=== PATIENT | male | born 1945 | race Caucasian/White ===

== ENCOUNTER 2017-02-14 14:40 | Emergency (ER) | payer MEDICARE, OTHER ==
[2017-02-14] MEDS ORDERED: NS 0.9% 1000 ML* 1,000 ML IV ONE (16:53)
[2017-02-14 17:54] LABS: Hematocrit 39 % (42-52); Hemoglobin 12.4 g/dl (14.0-18.0); Mean Corpuscular HGB Conc 32 g/dl (31-36); Mean Corpuscular Hemoglobin 30 pg (27-31); Mean Corpuscular Volume 95 fL (80-94); Mean Platelet Volume 8 um3 (7.4-10.4); Red Blood Count 4.09 10^6/ul (4.0-5.4); Red Cell Distribution Width 16 % (10.5-15)
[2017-02-14 18:09] LABS: ALT 9 U/L (7-52); AST 17 U/L (13-39); Albumin 3.1 g/dL (3.2-5.2); Alkaline Phosphatase 101 U/L (34-104); Amylase < 10 U/L (29-103); Anion Gap 4 mmol/L (2-11); BUN/Creatinine Ratio 7.6 (8-20); Blood Urea Nitrogen 10 mg/dL (6-24); C Reactive Protein 88.75 mg/L (< 5.00); CO2 Carbon Dioxide 32 mmol/L (22-32); Calcium 9.1 mg/dL (8.6-10.3); Chloride 97 mmol/L (101-111); Creatine Kinase 26 U/L (10-223); EGFR African American 69.8 (>60); EGFR Non-African American 54.3 (>60); Globulin 3.5 g/dL (2-4); Glucose 110 mg/dL (70-100); Lipase < 10 U/L (11.0-82.0); Potassium 4.7 mmol/L (3.5-5.0); Sodium 133 mmol/L (133-145); Total Protein 6.6 g/dL (6.4-8.9)
[2017-02-14] MEDS ORDERED: Iodixanol* (CONTRAST) 320 MG/ML 100 ML SDV IV ONE ×2 (18:45→19:04)
--- NOTE | 2017-02-14 18:55 | ED ---
Kelli Trammell Edward, scribed for Jacques Olivo MD on 02/14/17 at 1616 . Skin Complaint - HPI Summary HPI Summary: 71 y/o male presents to ED c/o rectal abscess. Patient has an abscess near his rectum on the L buttock that appeared 10 days ago. The pain due to the abscess is rated at an 8/10. The abscess popped yesterday; patient states it was 2-3 times the size it is now before then. Discharge from the abscess is almost all blood and no pus, per patient. Associated sx: decreased bowel movements (none in 5 days); hard painful stool; vomiting; back pain; stomach felt "light"; trouble urinating. Denies fever, chills. Patient had 2 abscesses, 1 on either side of the rectum around 2 months ago but resolved spontaneously following prescription drugs. PMHx abscess, enlarged prostate, HLD, heart problems, stomach ulcer 2 months ago. FHx DM (father), heart problems (father). - History of Current Complaint Chief Complaint: EDRectalPain Time Seen by Provider: 02/14/17 16:12 Stated Complaint: ABSCESS Hx Obtained From: Patient Onset/Duration: Started Days Ago - Around 10 days ago, Started Weeks Ago - Had 2 abscesses around 2 months ago Timing: Constant Onset Severity: Severe Current Severity: Moderate Pain Intensity: 8 Pain Scale Used: 0-10 Numeric Skin Location: Other: - Rectum Associated Signs & Symptoms: Vomiting, Tenderness - Rectum, due to absces - Additional Pertinent History Primary Care Physician: [id number] - Allergy/Home Medications Allergies/Adverse Reactions: Allergies Allergy/AdvReac Type Severity Reaction Status Date / Time Cortisone Allergy Intermediate SEVERE Verified 02/14/17 18:37 SWELLING OF BILATERAL FEET Propoxyphene [From Darvon] Allergy Intermediate Rash And Verified 02/14/17 18:37 Itching Adhesive Tape Allergy Unknown Unknown Verified 02/14/17 18:37 [Tegaderm Dressing] Reaction Details Latex Allergy Unknown Unknown Verified 02/14/17 18:37 Reaction Details Moxifloxacin [From Avelox] Allergy Unknown Unknown Verified 02/14/17 18:37 Reaction Details PMH/Surg Hx/FS Hx/Imm Hx Previously Healthy: No Endocrine/Hematology History: Denies: Hx Diabetes Cardiovascular History: Reports: Hx Angina, Hx Coronary Artery Disease, Hx Hypercholesterolemia, Hx Hypertension, Hx Myocardial Infarction, Hx Peripheral Vascular Disease, Other Cardiovascular Problems/Disorders Denies: Hx Pacemaker/ICD Respiratory History: Reports: Hx Chronic Obstructive Pulmonary Disease (COPD), Hx Sleep Apnea - borderline, Other Respiratory Problems/Disorders - Pt states chronic SOB to ED RN Denies: Hx Asthma GI History: Reports: Hx Gastroesophageal Reflux Disease, Hx Gastrointestinal Bleed, Hx Ulcer - 2013 BLEEDING STOMACH ULCER, Other GI Disorders - CONSTIPATION AND DIARRHEA HX OF PANCREATITIS History: Reports: Hx Renal Disease, Other Problems/Disorders - Kidney CA, partial right nephrectomy 2002 Musculoskeletal History: Reports: Hx Arthritis - BILATERAL FEET, SHOULDER, BACK , TOP 6 CERVICAL VERTEBRAE, Hx Back Problems - Chronic Back Pain Sensory History: Reports: Hx Contacts or Glasses - GLASSES Denies: Hx Hearing Aid Opthamlomology History: Reports: Hx Contacts or Glasses - GLASSES Neurological History: Reports: Hx Headaches - HX OF EXTREME H/A NONE PRESENTLY, Other Neuro Impairments/Disorders - Hx bilateral peripheral neuropathy CONCUSSION 2014 Psychiatric History: Reports: Hx Anxiety, Hx Depression - DOESN'T TAKE MEDS R/T SIDE EFFECTS Denies: Hx Panic Disorder - Cancer History Cancer Type, Location and Year: KIDNEY CA -Rt PARTIAL NEPHRECTOMY Hx Chemotherapy: No Hx Radiation Therapy: No - Surgical History Surgery Procedure, Year, and Place: 2001 RIGHT partial nephrectomy,2001 adhesions removed,2010 hernia repair,[id number] operation LEFT 1981 - BILATERTAL BREAST LUMPECTOMY 1996. LEFT BREAST LUMPECTOMY 2004-1 PRIMO STENT- 1 PROMUS STENT-4 MONORAIL STENTS-1 VORTX ABDOMINAL COIL-PER [employer] SCAN IN NORMAL MODE CONDITIONAL - 1.5t only 3T-ALL INFO REGUARDING STENT IS PT EMR. 2010 INCARCERATED VENTRAL HERNIA REPAIR Hx Anesthesia Reactions: No - Immunization History Date of Tetanus Vaccine: up to date per pt Date of Influenza Vaccine: NONE Infectious Disease History: No Infectious Disease History: Denies: Traveled Outside the [place] in Last 30 Days - Family History Known Family History: Positive: Cardiac Disease - Father - CAD, Other - Mom - cancer. Father - pancreatic cancer, CVA - Social History Alcohol Use: Daily Alcohol Amount: 2+ DRINKS DAILY Substance Use Type: Reports: None, Prescribed Hx Tobacco Use: Yes Smoking Status (MU): Light Every Day Tobacco Smoker Type: Cigarettes Amount Used/How Often: 1/2 PPD Length of Time of Smoking/Using Tobacco: MANY YEARS Have You Smoked in the Last Year: Yes Review of Systems Constitutional: Negative Negative: Fever, Chills Eyes: Negative ENT: Negative Cardiovascular: Negative Respiratory: Negative Positive: Vomiting, Other - Hard, painful stool. Decreased bowel movements Genitourinary: Other - Trouble urinating Musculoskeletal: Negative Skin: Other - Abscess on L buttcheek Neurological: Negative Psychological: Normal All Other Systems Reviewed And Are Negative: Yes Physical Exam - Summary Physical Exam Summary: The patient is well-nourished in mild distress and in no acute pain. The skin is warm and dry and skin color reflects adequate perfusion. HEENT: The head is normocephalic and atraumatic. The pupils are equal and reactive. The conjunctivae are clear and without drainage. Nares are patent and without drainage. Mouth reveals dry mucous membranes and the throat is without erythema and exudate. The external ears are intact. The ear canals are patent and without drainage. The tympanic membranes are intact. Neck is supple with full range of motion and non-tender. There are no carotid bruits. There is no neck vein distension. Respiratory: Chest is non-tender. Lungs are clear to auscultation and breath sounds are symmetrical and equal. Cardiovascular: Hear is regular rate and rhythm. There is no murmur or rub auscultated. There is no peripheral edema and pulses are symmetrical and equal. Abdomen: The abdomen is soft and non-tender. There are normal bowel sounds heard in all four quadrants and there is no organomegaly palpated. The belly is distended with caput medusae and fluid shifts. Musculoskeletal: There is no back pain noted. Extremities are non-tender with full range of motion. There is good capillary refill. There is no calf tenderness elicited. There is pitting edema in the lower extremities. Neurological: Patient is alert and oriented to person, place and time. The patient has symmetrical motor strength in all four extremities. Cranial nerves are grossly intact. Deep tendon reflexes are symmetrical and equal in all four extremities. Psychiatric: The patient has an appropriate affect and does not exhibit any anxiety or depression. fluctulent tender does appear to extend to rectum. Examination of buttocks revealed an abscess on the L buttock cheek with sanguineous discharge. The abscess does not appear to extend into the rectum. Triage Information Reviewed: Yes Vital Signs On Initial Exam: Initial Vitals Temp Pulse Resp BP Pulse Ox 97.2 F 92 20 120/64 96 02/14/17 14:43 02/14/17 14:43 02/14/17 14:43 02/14/17 14:43 02/14/17 14:43 Vital Signs Reviewed: Yes Diagnostics - Vital Signs Vital Signs Temp Pulse Resp BP Pulse Ox 02/14/17 14:46 97.3 F 88 20 120/64 95 02/14/17 14:43 97.2 F 92 20 120/64 96 - Laboratory Lab Results: Lab Results 02/14/17 02/14/17 02/14/17 Range/Units 17:43 17:43 17:43 WBC 8.0 (3.5-10.8) 10^3/ul RBC 4.09 (4.0-5.4) 10^6/ul Hgb 12.4 L (14.0-18.0) g/dl Hct 39 L (42-52) % MCV 95 H (80-94) fL MCH 30 (27-31) pg MCHC 32 (31-36) g/dl RDW 16 H (10.5-15) % Plt Count 164 (150-450) 10^3/ul MPV 8 (7.4-10.4) um3 Neut % (Auto) 72.8 (38-83) % Lymph % (Auto) 14.7 L (25-47) % [place] % (Auto) 9.7 H (1-9) % Eos % (Auto) 2.0 (0-6) % Baso % (Auto) 0.8 (0-2) % Absolute Neuts (auto) 5.8 (1.5-7.7) 10^3/ul Absolute Lymphs (auto) 1.2 (1.0-4.8) 10^3/ul Absolute Monos (auto) 0.8 (0-0.8) 10^3/ul Absolute Eos (auto) 0.2 (0-0.6) 10^3/ul Absolute Basos (auto) 0.1 (0-0.2) 10^3/ul Absolute Nucleated RBC 0 10^3/ul Nucleated RBC % 0 INR (Anticoag Therapy) 1.17 H (0.89-1.11) Sodium 133 (133-145) mmol/L Potassium 4.7 (3.5-5.0) mmol/L Chloride 97 L (101-111) mmol/L Carbon Dioxide 32 (22-32) mmol/L Anion Gap 4 (2-11) mmol/L BUN 10 (6-24) mg/dL Creatinine 1.31 H (0.67-1.17) mg/dL Est GFR ( Amer) 69.8 (>60) Est GFR (Non-Af Amer) 54.3 (>60) BUN/Creatinine Ratio 7.6 L (8-20) Glucose 110 H (70-100) mg/dL Lactic Acid (0.5-2.0) mmol/L Calcium 9.1 (8.6-10.3) mg/dL Total Bilirubin 0.60 (0.2-1.0) mg/dL AST 17 (13-39) U/L ALT 9 (7-52) U/L Alkaline Phosphatase 101 (34-104) U/L Total Creatine Kinase 26 (10-223) U/L C-Reactive Protein 88.75 H (< 5.00) mg/L Total Protein 6.6 (6.4-8.9) g/dL Albumin 3.1 L (3.2-5.2) g/dL Globulin 3.5 (2-4) g/dL Albumin/Globulin Ratio 0.9 L (1-3) Amylase < 10 L (29-103) U/L Lipase < 10 L (11.0-82.0) U/L 02/14/17 Range/Units 17:43 WBC (3.5-10.8) 10^3/ul RBC (4.0-5.4) 10^6/ul Hgb (14.0-18.0) g/dl Hct (42-52) % MCV (80-94) fL MCH (27-31) pg MCHC (31-36) g/dl RDW (10.5-15) % Plt Count (150-450) 10^3/ul MPV (7.4-10.4) um3 Neut % (Auto) (38-83) % Lymph % (Auto) (25-47) % [place] % (Auto) (1-9) % Eos % (Auto) (0-6) % Baso % (Auto) (0-2) % Absolute Neuts (auto) (1.5-7.7) 10^3/ul Absolute Lymphs (auto) (1.0-4.8) 10^3/ul Absolute Monos (auto) (0-0.8) 10^3/ul Absolute Eos (auto) (0-0.6) 10^3/ul Absolute Basos (auto) (0-0.2) 10^3/ul Absolute Nucleated RBC 10^3/ul Nucleated RBC % INR (Anticoag Therapy) (0.89-1.11) Sodium (133-145) mmol/L Potassium (3.5-5.0) mmol/L Chloride (101-111) mmol/L Carbon Dioxide (22-32) mmol/L Anion Gap (2-11) mmol/L BUN (6-24) mg/dL Creatinine (0.67-1.17) mg/dL Est GFR ( Amer) (>60) Est GFR (Non-Af Amer) (>60) BUN/Creatinine Ratio (8-20) Glucose (70-100) mg/dL Lactic Acid 0.9 (0.5-2.0) mmol/L Calcium (8.6-10.3) mg/dL Total Bilirubin (0.2-1.0) mg/dL AST (13-39) U/L ALT (7-52) U/L Alkaline Phosphatase (34-104) U/L Total Creatine Kinase (10-223) U/L C-Reactive Protein (< 5.00) mg/L Total Protein (6.4-8.9) g/dL Albumin (3.2-5.2) g/dL Globulin (2-4) g/dL Albumin/Globulin Ratio (1-3) Amylase (29-103) U/L Lipase (11.0-82.0) U/L Result Diagrams: 02/14/17 17:43 02/14/17 17:43 Lab Statement: Any lab studies that have been ordered have been reviewed, and results considered in the medical decision making process. Course/Dx - Course Assessment/Plan: 71 y/o male presents to ED c/o rectal abscess. Patient has an abscess near his rectum on the L buttock that appeared 10 days ago. Discharge from the abscess is almost all blood and no pus, per patient. Associated sx: decreased bowel movements (none in 5 days); hard painful stool; vomiting; back pain; stomach felt "light"; trouble urinating. Denies fever, chills. Patient had 2 abscesses, 1 on either side of the rectum around 2 months ago but resolved spontaneously following prescription drugs. Rectal pain. Pending CT ABD/PELVIS w/ contrast results. - Differential Diagnoses - Skin Complaint Differential Diagnoses: Abscess, Cellulitis, Other - buttock abscess, ascites, sbo, constipation, hepatic failure - Diagnoses Provider Diagnoses: Rectal pain Discharge - Discharge Plan Condition: Stable Disposition: OTHER Discharge Disposition Comment: Signout to Dr. Hernandez Patient Education Materials: Rectal Pain (ED) Referrals: Narayan Landa MD [Primary Care Provider] - The documentation as recorded by the Kelli keenan Edward accurately reflects the service I personally performed and the decisions made by me, Jacques Olivo MD.
--- NOTE | 2017-02-14 19:37 | RAD ---
Indication: Left buttocks abscess. Contrast: Administered 141.0 ml of VISAPAQUE 320 mgi/ml CT of the abdomen and pelvis was performed after oral and IV contrast administration. Coronal and sagittal reconstructed images were obtained. Lung bases demonstrate no pleural fluid, nodules or masses. Heart is of normal size without evidence of pericardial effusion. Liver is normal in size. No focal lesions or intrahepatic ductal dilatation is noted. The liver is diffusely decreased in density consistent with hepatic steatosis. Common duct is not dilated. Gallbladder demonstrates no calcified gallstones, pericholecystic fluid or wall thickening. The spleen is normal in size. No adrenal masses are noted. The left kidney demonstrates no hydronephrosis. Cortical cysts are noted in the left kidney measuring up to 2.2 cm. And in the lower pole measuring up to 4.8 cm. No hydronephrosis is noted. There is presumed right nephrectomy. Atherosclerotic aorta is noted. CT of the pelvis demonstrates no retroperitoneal or pelvic adenopathy. Urinary bladder is unremarkable. The colon is filled with stool. No evidence of small bowel dilatation is noted. No evidence of buttocks abscess is noted. No pelvic abscess or fluid collections are noted. No evidence of bowel obstruction is noted. IMPRESSION: No evidence of obstructive uropathy is noted. Patient is status post right nephrectomy. Hepatic steatosis is noted. No evidence of bowel obstruction or abnormal fluid collections are noted.
--- NOTE | 2017-02-14 20:30 | ED ---
Lata Trammell Rebecca, scribed for Alivia Hernandez MD on 02/14/17 at 1929 . Progress - Progress Note Progress Note: Pt was signed out from Dr. Olivo at [address] Abd/Pel results. - Results/Orders Results/Orders: CT Abd/Pel w/ contrast reveals: No evidence of obstructive uropathy is noted. Patient is status post right nephrectomy. Hepatic steatosis is noted. No evidence of bowel obstruction or abnormal fluid collections are noted. Re-Evaluation - Re-Evaluation First Eval Re-Evaluation Time: 19:59 Change: Improved Comment: Discussed and explained CT and lab results with the patient. 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 Answered any questions the pt had. Performed a rectal examination which revealed a purple-juliano discolored area in the L buttock and it is about 6 cm from the anus and is tender and draining blood, but there is no fluctuance and no pus. Reports no PMHx of MRSA. Advised to replace the bandage every day and not to apply any ointment to the wound. Second Eval Re-Evaluation Time: 20:20 Change: Unchanged Comment: Collected a wound culture. Course/Dx - Course Course Of Treatment: Pt was signed out from Dr. Olivo. CT Abd/Pel reveals no acute findings. Discussed lab and CT findings with the pt. Medications reviewed : Furosemide (20 mg), Aldactone (25 mg), Capex (0.01%), Vitamin D3 Super Strength (2000 unit), Nizoral (2%), Xanax (0.5 3x per day), Viagra (100 mg, 1/2 tablet prior to intercourse), Fluocinonide (0.1%), Naxonex (50 mcg/Act, 2 sprays in nostril daily), Proair HRA (108 mcg/Act), Nitrostat (0.4 mg, 1 sl as needed), Androgel (40.5 mg/2.5 gm), Vitacirc-B, Pantoprazole soidum (40 mg), Tamsulosin HCL (0.4 mg). Allergies noted. Pt will be D/C to home with Dx of draining buttock abscess and an Rx for Bactrim with a follow up with his PCP. - Diagnoses Provider Diagnoses: Draining buttock abscess The documentation as recorded by the Lata keenan Rebecca accurately reflects the service I personally performed and the decisions made by me, Alivia Hernandez MD.
[2017-02-14 20:43] VITALS: BP 114/70
--- NOTE | 2017-02-18 10:16 | ED ---
Progress - Progress Note Progress Note: Pt was signed out from Dr. Olivo at [address] Abd/Pel results. UPDATE: 02/18/2017 10:14AM - PT'S CX REVEALS NEG MRSA, NEG STAPH AUREUS; POSITIVE PEPTONIPHILUS ASACCHAROLYTICUS. Pt was started on bactrim. These are preliminary results - will wait for sens to see about medication changes. DINORA PEÑA - Results/Orders Results/Orders: CT Abd/Pel w/ contrast reveals: No evidence of obstructive uropathy is noted. Patient is status post right nephrectomy. Hepatic steatosis is noted. No evidence of bowel obstruction or abnormal fluid collections are noted. Re-Evaluation - Re-Evaluation First Eval Re-Evaluation Time: 19:59 Change: Improved Comment: Discussed and explained CT and lab results with the patient. 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 Answered any questions the pt had. Performed a rectal examination which revealed a purple-juliano discolored area in the L buttock and it is about 6 cm from the anus and is tender and draining blood, but there is no fluctuance and no pus. Reports no PMHx of MRSA. Advised to replace the bandage every day and not to apply any ointment to the wound. Second Eval Re-Evaluation Time: 20:20 Change: Unchanged Comment: Collected a wound culture. Course/Dx - Course Course Of Treatment: Pt was signed out from Dr. Olivo. CT Abd/Pel reveals no acute findings. Discussed lab and CT findings with the pt. Medications reviewed : Furosemide (20 mg), Aldactone (25 mg), Capex (0.01%), Vitamin D3 Super Strength (2000 unit), Nizoral (2%), Xanax (0.5 3x per day), Viagra (100 mg, 1/2 tablet prior to intercourse), Fluocinonide (0.1%), Naxonex (50 mcg/Act, 2 sprays in nostril daily), Proair HRA (108 mcg/Act), Nitrostat (0.4 mg, 1 sl as needed), Androgel (40.5 mg/2.5 gm), Vitacirc-B, Pantoprazole soidum (40 mg), Tamsulosin HCL (0.4 mg). Allergies noted. Pt will be D/C to home with Dx of draining buttock abscess and an Rx for Bactrim with a follow up with his PCP. - Diagnoses Provider Diagnoses: Draining buttock abscess
== END 2017-02-14 20:45 | disposition home or self-care (01) ==
LOC: ED 14:40
DX: L02.31 Cutaneous abscess of buttock (principal)
CPT/HCPCS: 36415; 74177; 80053; 82140; 82150; 82550; 83605; 83690; 85025; 85610; 86140; 87040; 87070; 87076; 87205; 87640; 87641; 99284; Q9967

== ENCOUNTER 2019-06-30 13:23 | Inpatient (IN) | payer MEDICARE, OTHER ==
--- NOTE | 2019-06-30 14:35 | ED ---
Lower Extremity - HPI Summary HPI Summary: Patient is a 73 y/o M presenting to the ED for a chief complaint of bilateral LE edema. Patient was sent to the ED by his PCP. Patient also complains of low blood pressure, shortness of breath, headache, and balance problems. Patient states his legs are twice the size they usually are and are hard. 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 PSHx is significant for 6 cardiac stent placements and fluid removal from his abdomen. Patient has had a brain CT in the past and one week ago, had an ultrasound for his bilateral LE and abdomen. He typically uses 4 L of oxygen at home. Patient admits drinking 1-3 glasses of wine a day. Allergies noted. Medications reviewed. - History of Current Complaint Chief Complaint: EDGeneral Stated Complaint: EDEMA IN BOTH LEGS,LOW OXYGEN SAT,LOW BP PER PT Time Seen by Provider: 06/30/19 14:24 Hx Obtained From: Patient Mechanism Of Injury: Other - None Onset of Pain: Prior to Arrival Onset/Duration: Still Present Severity Initially: Mild Severity Currently: Mild Pain Intensity: 0 Pain Scale Used: 0-10 Numeric Timing: Constant Location: Is Discrete @ - Bilateral LE Associated Signs And Symptoms: Positive: Swelling - Bilateral LE, Other - Positive SOB, SEYMOUR, balance problems, hypotention Aggravating Factor(s): Nothing Alleviating Factor(s): Nothing Able to Bear Weight: Yes - Allergies/Home Medications Allergies/Adverse Reactions: Allergies Allergy/AdvReac Type Severity Reaction Status Date / Time cortisone Allergy Intermediate Severe Verified 06/30/19 14:34 edema bilateral feet propoxyphene Allergy Intermediate Rash And Verified 06/30/19 14:34 Itching Adhesive Tape Allergy Unknown Unknown Verified 06/30/19 14:34 [Tegaderm Dressing] Reaction Details Latex, Natural Rubber Allergy Unknown Unknown Verified 06/30/19 14:34 Reaction Details moxifloxacin Allergy Unknown Unknown Verified 06/30/19 14:34 Reaction Details pregabalin [From Lyrica] Allergy lethargy Verified 06/30/19 14:34 Home Medications: Home Medications Cholecalciferol CAP/TAB(NF) [Vitamin D3 CAP/TAB (NF)] 1,000 unit PO .1-2X/DAY [History Confirmed 06/30/19] Epleronone (NF) [Inspra (NF)] 25 mg PO BID 06/30/19 [History Confirmed 06/30/19] Mometasone NASAL (NF) [Nasonex (NF)] 50 mcg BOTH NARES WEEKLY 06/30/19 [History Confirmed 06/30/19] PMH/Surg Hx/FS Hx/Imm Hx Previously Healthy: Yes Endocrine/Hematology History: Denies: Hx Diabetes Cardiovascular History: Reports: Hx Angina, Hx Coronary Artery Disease, Hx Hypercholesterolemia, Hx Hypertension, Hx Myocardial Infarction, Hx Peripheral Vascular Disease, Other Cardiovascular Problems/Disorders Denies: Hx Pacemaker/ICD Respiratory History: Reports: Hx Chronic Obstructive Pulmonary Disease (COPD), Hx Sleep Apnea - borderline, Other Respiratory Problems/Disorders - Pt states chronic SOB to ED RN Denies: Hx Asthma GI History: Reports: Hx Gastroesophageal Reflux Disease, Hx Gastrointestinal Bleed, Hx Ulcer - 2013 BLEEDING STOMACH ULCER, Other GI Disorders - CONSTIPATION AND DIARRHEA HX OF PANCREATITIS History: Reports: Hx Renal Disease, Other Problems/Disorders - Kidney CA, partial right nephrectomy 2002 Musculoskeletal History: Reports: Hx Arthritis - BILATERAL FEET, SHOULDER, BACK , TOP 6 CERVICAL VERTEBRAE, Hx Back Problems - Chronic Back Pain Sensory History: Reports: Hx Contacts or Glasses - GLASSES Denies: Hx Legally Blind, Hx Deafness, Hx Hearing Aid Opthamlomology History: Reports: Hx Contacts or Glasses - GLASSES Denies: Hx Legally Blind EENT History: Denies: Hx Deafness Neurological History: Reports: Hx Headaches - HX OF EXTREME H/A NONE PRESENTLY, Other Neuro Impairments/Disorders - Hx bilateral peripheral neuropathy CONCUSSION 2014 Psychiatric History: Reports: Hx Anxiety, Hx Depression - DOESN'T TAKE MEDS R/T SIDE EFFECTS Denies: Hx Panic Disorder - Cancer History Cancer Type, Location and Year: KIDNEY CA -Rt PARTIAL NEPHRECTOMY Hx Chemotherapy: No Hx Radiation Therapy: No - Surgical History Surgical History: Yes Surgery Procedure, Year, and Place: 2001 RIGHT partial nephrectomy,2001 adhesions removed,2010 hernia repair,[id number] operation LEFT 1981 - BILATERTAL BREAST LUMPECTOMY 1996. LEFT BREAST LUMPECTOMY 2004-1 PRIMO STENT- 1 PROMUS STENT-4 MONORAIL STENTS-1 VORTX ABDOMINAL COIL-PER [employer]ce[employer] Power SCAN IN NORMAL MODE CONDITIONAL - 1.5t only 3T-ALL INFO REGUARDING STENT IS PT EMR. 2011 INCARCERATED VENTRAL HERNIA REPAIR Hx Anesthesia Reactions: No - Immunization History Date of Tetanus Vaccine: up to date per pt Date of Influenza Vaccine: NONE Infectious Disease History: No Infectious Disease History: Denies: Traveled Outside the [place] in Last 30 Days - Family History Known Family History: Positive: Cardiac Disease - Father - CAD, Other - Mom - cancer. Father - pancreatic cancer, CVA - Social History Occupation: Retired Lives: With Family Alcohol Use: Daily Alcohol Amount: 2+ DRINKS DAILY Hx Substance Use: No Substance Use Type: Reports: None, Prescribed Hx Tobacco Use: Yes Smoking Status (MU): Light Every Day Tobacco Smoker Type: Cigarettes Amount Used/How Often: 1/2 PPD Length of Time of Smoking/Using Tobacco: MANY YEARS Have You Smoked in the Last Year: Yes Review of Systems Positive: Other - Positive low blood pressure Positive: Shortness Of Breath Positive: Edema - Bilateral LE Neurological: Other - Positive balanace problems Positive: Headache All Other Systems Reviewed And Are Negative: Yes Physical Exam - Summary Physical Exam Summary: Constitutional: Well-developed, Well-nourished, Alert. (-) Distressed Skin: Warm, Dry HENT: Normocephalic; Atraumatic Eyes: Conjunctiva normal Neck: Musculoskeletal ROM normal neck. (-) JVD, (-) Stridor, (-) Tracheal deviation Cardio: Rhythm regular, rate normal, Heart sounds normal; Intact distal pulses; Radial pulses are 2+ and symmetric. (-) Murmur Pulmonary/Chest wall: Effort normal. (-) Respiratory distress, (-) Wheezes, (-) Rales. Crackles in the bilateral bases. Saturation is well on 4L of oxygen. Abd: Soft, (-) tenderness, (-) Guarding, (-) Rebound. Distended abdomen with fluid wave Musculoskeletal: 2+ pitting edema in the bilateral LE, erythematous legs, no warmth or fluctuance. Lymph: (-) Cervical adenopathy Neuro: Alert, Oriented x3 Psych: Mood and affect Normal Triage Information Reviewed: Yes Vital Signs On Initial Exam: Initial Vitals Temp Pulse Resp BP Pulse Ox 97.9 F 69 18 106/55 96 06/30/19 13:25 06/30/19 13:25 06/30/19 13:25 06/30/19 13:25 06/30/19 13:25 Vital Signs Reviewed: Yes Procedures - Sedation Patient Received Moderate/Deep Sedation with Procedure: No Diagnostics - Vital Signs Vital Signs Temp Pulse Resp BP Pulse Ox 06/30/19 13:25 97.9 F 69 18 106/55 96 - Laboratory Lab Results: Lab Results 06/30/19 Range/Units 14:13 VBG pH 7.32 (7.32-7.43) VBG pCO2 63 H (41-51) mmHg VBG pO2 < 38.0 (35-45) mmHg VBG HCO3 27.2 (24-28) mmol/L VBG O2 Saturation 54.8 L (70-80) % VBG Base Excess 4.5 H (0.0-4.0) mmol/L Result Diagrams: 06/30/19 14:13 06/30/19 20:05 Lab Statement: Any lab studies that have been ordered have been reviewed, and results considered in the medical decision making process. - Radiology Chest X-ray Radiology Interpretation Completed By: Radiologist Summary of Radiographic Findings: Chest X-ray IMPRESSION: LOW LUNG VOLUMES, SMALL RIGHT BASILAR INFILTRATE. Reviewed by Dr. Soria. - EKG 15:13 Cardiac Rate: NL - 60 BPM EKG Rhythm: Sinus Rhythm ST Segment: Normal Ectopy: None EKG Comparison: No Significant Change Summary of EKG Findings: EKG at 15:13 shows 60 BPM with normal sinus rhythm, RBBB, and new ST depression in lead II compared to an EKG on 09/02/18. Otherwise , no changes from baseline. Reviewed and interpreted by Dr. Soria. Lower Extremity Course/Dx - Course Course Of Treatment: Patient is here with anasarca likely secondary to cirrhosis. Patient has had worsening shortness of breath and peripheral edema. Patient had evidence for pulmonary edema on chest x-ray and auscultation. Patient had blood before showed a BNP greater than 1300 which is new for patient. Patient might have new-onset heart failure. Patient has elevated creatinine consistent with possible hepatorenal syndrome. Patient's potassium was 6.3 with no obvious EKG changes although patient has a right bundle-branch block at baseline making QRS widening unreliable. Patient was given calcium and albuterol for that. Patient is admitted to medicine for further management. - Diagnoses Provider Diagnoses: Anasarca, Pulmonary edema, Shortness of breath, Hyperkalemia - Physician Notifications Discussed Care Of Patient With: Dieudonne Royal - At 15:41, Dr. Dieudonne Royal agrees to admit the patient to [facility] with a diagnosis of anasarca, pulmonary edema, shortness of breath, and hyperkalemia. Time Discussed With Above Provider: 15:41 Instructed by Provider To: Admit As Inpatient - Critical Care Time Critical Care Time: 30-74 min - 35 Discharge ED - Sign-Out/Discharge Documenting (check all that apply): Patient Departure - Admit - Discharge Plan Condition: Stable Disposition: ADMITTED TO [facility] - Billing Disposition and Condition Condition: STABLE Disposition: Admitted to [facility] - Attestation Statements Document Initiated by Scribe: Yes Documenting Scribe: Justina Garza Provider For Whom Abner is Documenting (Include Credential): Barrera Soria MD Scribe Attestation: Justina Trammell, scribed for Barrera Soria MD on 06/30/19 at 2103. Scribe Documentation Reviewed: Yes Provider Attestation: The documentation as recorded by the Justina keenan accurately reflects the service I personally performed and the decisions made by Barrera delcid MD Status of Scribe Document: Viewed
[2019-06-30 14:50] LABS: ABS Eosinophils 0.1 10^3/ul (0-0.6); ABS Lymphocytes 0.6 10^3/ul (1.0-4.8); ABS Monocytes 0.4 10^3/ul (0-0.8); ABS Neutrophils 3.3 10^3/ul (1.5-7.7); Eosinophil % 3.2 %; Hematocrit 35 % (42-52); Hemoglobin 10.7 g/dL (14.0-18.0); Lymphocyte % 12.5 %; Mean Corpuscular HGB Conc 31 g/dL (31-36); Mean Corpuscular Hemoglobin 26 pg (27-31); Mean Corpuscular Volume 86 fL (80-94); Mean Platelet Volume 8.6 fL (7.4-10.4); Nucleated Red Blood Cells % 0.1; Platelet Count 197 10^3/uL (150-450); Red Blood Count 4.07 10^6 /uL (4.18-5.48); Red Cell Distribution Width 21 % (10-15); White Blood Count 4.5 10^3/uL (3.5-10.8)
[2019-06-30 15:09] LABS: Troponin I 0.04 ng/mL (<0.03)
[2019-06-30 15:18] LABS: Albumin 3.6 g/dL (3.2-5.2); Albumin/Globulin Ratio 1.1 (1-3); BUN/Creatinine Ratio 16.6 (8-20); Calcium 9.3 mg/dL (8.6-10.3); EGFR African American 20.2 (>60); EGFR Non-African American 16.7 (>60); Globulin 3.3 g/dL (2-4); Total Bilirubin 0.4 mg/dL (0.2-1.0); Total Protein 6.9 g/dL (6.4-8.9)
[2019-06-30 15:20] LABS: Potassium 6.3 mmol/L (3.5-5.0)
[2019-06-30] MEDS ORDERED: Calcium Gluconate INJ* 1 GM in NS 0.9% 100 ML* 100 ML IVPB ONE (15:21)
[2019-06-30] MEDS ORDERED: Albuterol 0.5% CONC NEB.SOL* 5 MG/ML 20 ml BOT INH ONE (15:21)
[2019-06-30] MEDS ORDERED: Insulin REGULAR(*) 1 UNITS UNIT IV PUSH ONE (16:25)
[2019-06-30 16:45] LABS: INR 1.09 (0.82-1.09)
[2019-06-30] MEDS: Patiromer POWDER* 8.4 GM PAK PO SCH (16:55)
[2019-06-30] MEDS: Dextrose 50% VIAL 50 ml IV SCH ×2 (16:56→18:25)
[2019-06-30] MEDS ORDERED: Furosemide IV* 10 MG/ML VIAL (40 MG) IV ONE (17:38)
[2019-06-30] MEDS ORDERED: Nitroglycerin TAB 0.4 MG* 0.4 MG TAB SL PRN (18:16)
[2019-06-30] MEDS ORDERED: Dextrose 50% Syringe 50 ML* 25 GM/50 ML SYRINGE IV PUSH PRN (18:20)
[2019-06-30] MEDS ORDERED: Dextrose 50% VIAL 50 ml ONE (18:21)
[2019-06-30 18:53] LABS: Urine Creatinine Concentration 45.38 mg/dL
[2019-06-30 19:00] LABS: C Reactive Protein 14.49 mg/L (<8.01)
[2019-06-30] MEDS ORDERED: Fluticasone NASAL SPRAY 50MCG* 16 gm SPRAY BTL BOTH NARES SCH (20:00)
[2019-06-30 20:32] LABS: BUN/Creatinine Ratio 16.5 (8-20); Calcium 9.4 mg/dL (8.6-10.3); EGFR African American 20.1 (>60); EGFR Non-African American 16.6 (>60)
[2019-06-30 20:33] LABS: Potassium 5.6 mmol/L (3.5-5.0)
[2019-06-30] MEDS: oxyCODONE SR TAB(*) 20 MG TAB.SR PO SCH (20:58)
[2019-06-30] MEDS: Polyethylene Glycol 3350* 17 GM PACKET PO PRN (20:58)
[2019-06-30] MEDS: Heparin VIAL(*) 5000 UNITS/ML VIAL (FIVE THOUSAND) SUBCUT SCH (20:58)
[2019-06-30] MEDS: ALPRAZolam TAB* 0.25 MG PO PRN (20:59)
[2019-06-30] MEDS: Cholecalciferol TAB* 1000 UNITS PO SCH (20:59)
--- NOTE | 2019-06-30 22:04 | HP ---
HISTORY AND PHYSICAL: DATE OF ADMISSION: 06/30/19 ADMITTING PROVIDER: Dieudonne Royal MD. PRIMARY CARE PROVIDER: Narayan Landa MD. OUTPATIENT UROLOGIST: Dr. Chua. GI DOCTOR: Dr. Tinoco. CARDIAC PROVIDER: Dr. Diaz. CHIEF COMPLAINT: Increasing leg swelling. HISTORY OF PRESENT ILLNESS: Marcell Thorne is a 73-year-old male with past medical history of alcoholic cirrhosis, coronary artery disease; status post stents, GI bleed with hemorrhagic shock in August 2014, renal cell carcinoma; status post right kidney nephrectomy, BPH, hyperlipidemia, longtime smoker, and alcoholism. He has had worsening lower extremity edema for several weeks, if not months, and he was seen by Dr. Landa today who sent him to the emergency room for further evaluation. His weight, he has gained approximately 8 pounds in the last month. He did have an ultrasound of his abdomen on 06/24/19, which showed some [id number] ascites, cirrhosis. He is chronically orthopneic and sleeping in a recliner. He has had intermittent chest pains and has been taking more frequent nitroglycerin tabs. He did have an episode in the emergency room as well, which was brief. He has had some pain in his left stomach that has been going on for months intermittently. Denies any fevers. He has had chills for again months. He had a fall about a month ago and chronically needs a cane to walk. He has some severe peripheral neuropathy given his alcohol use. He has been a little bit more confused. On initial workup in the [facility] Emergency Room, he has had worsening of his creatinine function to 3.62, up from 3 on 06/24/19 and 2.2 on 03/04/19. I think he has not been taking his eplerenone ever since it was prescribed on 01/27 as he called the pharmacy and was told that it was for a psychiatric condition. He may have been confused with the escitalopram that he was also prescribed. He is not sure if he is not taking one or both of the these, but he does have a very full bottle from 04/16/19 in his possession. Initial workup also included hyperkalemia up to 6.3, troponin of 0.04, BNP of greater than 1300 and a chest x-ray that demonstrated low lung volumes, small right basilar infiltrates and did have a known pleural effusion on the ultrasound on the right. In the emergency room, he was given calcium gluconate 1 g and DuoNeb. He was referred to hospitalist service for worsening heart and kidney failure. PAST MEDICAL HISTORY: Includes: 1. Alcoholic cirrhosis. 2. CAD, status post multiple stents. 3. GI bleed with hemorrhagic shock in 2014. 4. Hypertension. 5. 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 6. BPH. 7. Hyperlipidemia. 8. Ventral hernia repair. 9. Ex lap for lysis of adhesions. 10. Breast surgery x2. OUTPATIENT MEDICATIONS: Include: 1. Tamsulosin 0.4 mg 1 tab by mouth once daily. 2. Eplerenone 25 mg by mouth 3 times a day, just changed up from twice a day, though I do not think he is actually taking it. 3. Escitalopram 2 mg half by mouth every day. 4. Midodrine 5 mg one by mouth twice a day. 5. Triamcinolone 0.1% to skin twice a day. 6. Oxycodone 5 mg by mouth every 4 hours as needed. 7. Topicort 0.25% 1 application topical twice a day. 8. Lactulose 30 mL by mouth 3 times a day. He is not actually taking this. 9. Crestor 5 mg every day. 10. Hydrocortisone valerate 0.2% apply twice a day as needed. 11. Lasix 20 mg p.o. twice a day, but just increased to 3 times a day today. 12. Metoprolol succinate extended release 25 mg by mouth once a day. 13. Xanax 0.5 mg 3 times a day p.r.n. He is actually just taking twice a day. 14. Oxycodone 20 mg twice a day. 15. Aspirin 81 mg daily. 16. Pantoprazole 40 mg daily. 17. Nystatin, new medication 2 or 3 times a day. 18. Mometasone furoate 3 times a day. 19. AndroGel 2 pumps daily (new today). FAMILY HISTORY: His father of several types of cancers including kidney, pancreatic, and liver; not clear which one was the primary. His mother is alive at age 98; history of breast cancer and possibly rheumatoid arthritis. SOCIAL HISTORY: The patient is a long-term alcoholic between the ages of 20 until 1991. He stopped for 13 years until 2004. Then, his and he has been a daily drinker since; currently 1 to 3 glasses of wine daily. Smoking : He smokes approximately 3 cigarettes a day. He has been smoking since the age of 18. He denies any drug use. His medical surrogate is his son, Marcell Thorne Jr. He desires to be a full code. REVIEW OF SYSTEMS: A complete 14-point review of systems is negative, except as per HPI. PHYSICAL EXAMINATION GENERAL APPEARANCE: Chronically ill appearing, but in no acute distress. VITAL SIGNS: Temperature 97.8, respiratory rate 13 and 22, pulse in the 60s to 70s, satting 97% to 100% on room air, blood pressure 106/55. HEENT: Normocephalic, atraumatic. Pupils are equal, round, and reactive to light. Extraocular motions are intact. No scleral icterus. LUNGS: Diminished at the right base. No wheezing or rhonchi. CARDIOVASCULAR: Regular rate and rhythm. No murmurs, rubs, or gallops. ABDOMEN: Quite distended, but soft, nontender, tympanic. To percussion, there is an obstructing fluid wave. EXTREMITIES: 2+ edema bilaterally extending up to the dependent buttocks and posterior abdomen with some erythema bilaterally. NEURO: Cranial nerves II through XII intact. No asterixis. Oriented x3. SKIN: As above. DIAGNOSTIC STUDIES/LAB DATA: Labs: White count 4.5, hemoglobin 10.7, hematocrit 35, platelets 197. Chemistry: Sodium 137, potassium 6.3, carbon dioxide 32, BUN 60, creatinine 3.62, glucose 678. Total bili 0.4, AST 10, ALT 4 , alk phosphatase 7. Troponin 0.04, BNP greater than 1300. Albumin 3.6. Lipase 11. Imaging: Chest x-ray, as above. His EKG shows normal sinus rhythm, right bundle-branch block, and left posterior fascicular block, Q waves inferiorly. No ST elevations or depressions. ASSESSMENT AND PLAN: Marcell Thorne Sr is a 73-year-old male with alcoholic cirrhosis with continued daily alcohol use presenting with worsening edema over the last several weeks, weight gain, and worsening renal function with elevated BNP. His last echocardiogram that I could see was in July 2014 with EF of 44 %. I will repeat that now. He has got intermittent chest pain. I am going to give him 40 mg IV Lasix now and 60 mg twice a day starting tomorrow. I have added on urine sodium, nitrogen, and creatinine concentrations to calculate FENa and FEurea and also to assess for any sediment which might make hepatorenal syndrome less likely. I did do a bedside quick scan with an ultrasound and he did have some ascites and he could have a diagnostic paracentesis in the morning. That ought to be helpful to rule out spontaneous bacterial peritonitis without leukocytosis. I am going to add CRP. Hold off on any empiric antibiotics for now. Do strict Is and Os and daily weights. Given his BPH, I did do a bladder scan, a random one, not after a void and he did have 500 cc in his bladder and I have ordered postvoid residuals. I have added on an ammonia level, which is still pending and if that it is high, would recommend lactulose treatments. For his chest pain, continue nitroglycerin p.r.n., Crestor, likely atorvastatin substitute, aspirin 81 mg daily. We are getting an echocardiogram. He is symptom- free at the moment. Also, notably, he is on midodrine and that will continue. He has got possibly hepatorenal syndrome. I have added on an INR and actually that has now returned at 1.09, within normal limits. For his hyperkalemia, I did give dextrose and insulin detemir. We will repeat a BMP at 8 p.m. he is status post calcium gluconate as well and albuterol. He did state he would be open to the idea of dialysis if necessary. We will check his fingersticks every 1 to 2 hours in the next 6 to 8 hours in the setting of giving insulin. I will repeat EKG in the morning. He is a full code. Medical surrogate is his son, Marcell Thorne Jr. [id number]/[facility] #: [id number] [facility] HOSPITALWillie
[2019-07-01] MEDS: Heparin VIAL(*) 5000 UNITS/ML VIAL (FIVE THOUSAND) SUBCUT SCH ×3 (05:55→21:24)
[2019-07-01 05:57] LABS: ABS Basophils 0.1 10^3/ul (0-0.2); ABS Eosinophils 0.2 10^3/ul (0-0.6); ABS Monocytes 0.7 10^3/ul (0-0.8); ABS Neutrophils 3.8 10^3/ul (1.5-7.7); Eosinophil % 3.2 %; Hematocrit 35 % (42-52); Hemoglobin 10.8 g/dL (14.0-18.0); Lymphocyte % 17.8 %; Mean Corpuscular HGB Conc 31 g/dL (31-36); Mean Corpuscular Hemoglobin 27 pg (27-31); Mean Corpuscular Volume 86 fL (80-94); Mean Platelet Volume 8.4 fL (7.4-10.4); Nucleated Red Blood Cells % 0.1; Platelet Count 211 10^3/uL (150-450); Red Blood Count 4.03 10^6 /uL (4.18-5.48); Red Cell Distribution Width 21 % (10-15); White Blood Count 5.8 10^3/uL (3.5-10.8)
[2019-07-01 06:13] LABS: BUN/Creatinine Ratio 17.4 (8-20); Blood Urea Nitrogen 60 mg/dL (6-24); CO2 Carbon Dioxide 30 mmol/L (22-32); Calcium 9.1 mg/dL (8.6-10.3); Chloride 99 mmol/L (101-111); EGFR African American 21.3 (>60); EGFR Non-African American 17.6 (>60); Glucose 88 mg/dL (70-100); Magnesium 2.4 mg/dL (1.9-2.7); Sodium 137 mmol/L (135-145)
[2019-07-01 06:15] LABS: Anion Gap 8 mmol/L (2-11); Potassium 5.3 mmol/L (3.5-5.0)
[2019-07-01 06:17] LABS: Troponin I 0.04 ng/mL (<0.03)
[2019-07-01] MEDS ORDERED: Furosemide IV* 10 MG/ML 10 ML VIAL (100 MG) IV SCH (08:00)
[2019-07-01] MEDS ORDERED: Perflutren Lipid Microsphere* 3 ML VIAL ONE (08:12)
[2019-07-01] MEDS: Metoprolol Succinate XL TAB* 25 MG PO SCH (08:16)
[2019-07-01] MEDS: Aspirin 81 mg CHEW TAB* 81 MG TAB.CHEW PO SCH (08:45)
[2019-07-01] MEDS: Tamsulosin CAP* 0.4 MG PO SCH (08:45)
[2019-07-01] MEDS: Atorvastatin* 10 MG TAB PO SCH (08:46)
[2019-07-01] MEDS: Pantoprazole TAB * 40 MG TAB PO SCH (08:46)
[2019-07-01] MEDS: Cholecalciferol TAB* 1000 UNITS PO SCH (08:46)
[2019-07-01] MEDS: oxyCODONE SR TAB(*) 20 MG TAB.SR PO SCH ×2 (08:46→21:25)
[2019-07-01] MEDS: Furosemide IV* 10 MG/ML VIAL (40 MG) IV SCH ×2 (08:48→15:56)
[2019-07-01] MEDS: Patiromer POWDER* 8.4 GM PAK PO SCH (09:06)
--- NOTE | 2019-07-01 09:36 | ECHO ---
*[facility]* [place] [address] Fax #: [phone] Transthoracic Echocardiogram Patient: Marcell Thorne : 1945 Study Date: 07/01/2019 Age: 73 Gender: M HR: 61 bpm Height: 73 in /185.4 cm BSA: 2.44 m^2 Weight: 269.4 lb /122.5 kg BMI: 35.6 kg/m^2 *Oracle Database Analyst: * Joycelyn Neri [facility] *Referring Physician: * Dieudonne Royal *Reading Physician: * Christian Fields MD Indications: Congestive Heart Failure. SOB. History: Renal cell carcinoma. Coronary artery disease. Risk factors: Current tobacco use. Dyslipidemia. Labs, prior tests, procedures, and surgery: Catheterization. There was a stenosis which was treated with a stent. Right nephrectomy. Conclusions Summary: - Left ventricle: The cavity size is normal. Wall thickness is mildly increased. Systolic function is normal. The estimated ejection fraction is 55-60%. - Regional wall motion abnormality: Moderate hypokinesis of the mid-apical inferior and mid inferolateral myocardium. - Right ventricle: Not well visualized, it appears dilated/dysfunctional in some views. Systolic pressure cannot be accurately determined, but appears to be increased. - Left atrium: The atrium is moderately dilated. - Aortic valve: The findings are consistent with moderate stenosis. The peak systolic velocity is 3.6 m/sec. The mean systolic gradient is 31.0 mm Hg. The valve area by the velocity-time integral method is 1.21 cm^2. Recommendations: Compared to prior study from 07/2014, LVEF previously 45% and was mild. Study data: Transthoracic echocardiogram. Procedure: Transthoracic echocardiography was performed. Image quality was suboptimal. The study was technically limited due to restricted patient mobility and body habitus. Intravenous Definity , 2 mlswas administered. Complete 2D, spectral Doppler, and color flow Doppler. Location: Bedside. Patient status: Inpatient. Patient room number: 444-1. Rhythm: Normal sinus rhythm. Findings Left ventricle: The cavity size is normal. Wall thickness is mildly increased. Systolic function is normal. The estimated ejection fraction is 55-60%. Regional wall motion abnormalities: Moderate hypokinesis of the mid-apical inferior and mid inferolateral myocardium. Left ventricular diastolic function parameters are indeterminate. Right ventricle: Not well visualized, it appears dilated/dysfunctional in some views. Systolic pressure cannot be accurately determined, but appears to be increased. Left atrium: The atrium is moderately dilated. Right atrium: Not well visualized. Mitral valve: The leaflets are mildly thickened. There is no evidence of stenosis. There is trace to mild regurgitation. Aortic valve: The valve is trileaflet. The leaflets are moderately calcified. The findings are consistent with moderate stenosis. There is no significant regurgitation. Tricuspid valve: Not well visualized. There is no evidence of stenosis. There is trace regurgitation. Pulmonic valve: Not well visualized. There is no evidence of stenosis. Aorta: Aortic root: The aortic root is appears normal. Ascending aorta: The ascending aorta is appears normal. Aortic arch: The aortic arch is poorly visualized. Pericardium: There is no significant pericardial effusion. Pulmonary arteries: Poorly visualized. Systolic pressure can not be accurately estimated. Systemic veins: Inferior vena cava: The vessel is dilated. There is (>= 50%) respiratory change in the IVC dimension. Measurements Left ventricle Value Ref Right atrium Value Ref [place], LAX 4.7 cm 4.2 - 5.8 SI dim, ES (H) 6.6 cm 3.4 - 5.3 ESD, LAX 3.3 cm 2.5 - 4.0 ML dim, ES, A4C (H) 6.1 cm 2.6 - 4.4 FS, LAX 30 % 25 - 43 SI dim, ES, A4C (H) 6.6 cm 3.4 - 5.3 PW, ED, LAX (H) 1.1 cm 0.6 - 1.0 Estimated RAP 8 mm Hg --------- FS 30 % 25 - 43 PW, ED (H) 1.1 cm 0.6 - 1.0 Aortic valve Value Ref E', lat mona, TDI (L) 6.2 cm/sec >=10.0 Mona diam, ED 2.3 cm ------ --- E/e', lat mona, 19 Peak v, S 3.6 m/sec --------- TDI VTI, S 88.0 cm --------- E', med mona, TDI (L) 4.2 cm/sec >=7.0 Mean grad, S 31.0 mm Hg ------ --- E/e', med mona, 28 Peak grad, S 51.0 mm Hg --------- TDI EDGAR, VTI 1.21 cm^2 --------- E', avg, TDI 5.2 cm/sec EDGAR, Vmax 1.16 cm^2 --------- E/e', avg, TDI (H) 23 <=14 Mitral valve Value Ref LVOT Value Ref Peak E 1.18 m/sec --------- Diam, S 2.20 cm Peak A 0.81 m/sec --------- Area 3.8 cm^2 Decel time 246 ms --------- Peak eduarda, S 1.1 m/sec Peak grad, D 5.6 mm Hg --------- VTI, S 28.0 cm Peak E/A ratio 1.5 --------- Mean grad, S 3 mm Hg SV 79 ml Pulmonic valve Value Ref SV/bsa 32 ml/m^2 Peak v, S 1.09 m/sec --------- Peak grad, S 5.0 mm Hg --------- Ventricular septum Value Ref IVS, ED (H) 1.1 cm 0.6 - 1.0 Aortic root Value Ref Root diam 3.0 cm <4.5 Right ventricle Value Ref COR[place]ON, LAX 3.2 cm Ascending aorta Value Ref [place] minor ax, (H) 4.5 cm 1.9 - 3.5 AAo AP diam, S 3.1 cm --------- A4C mid Inferior vena cava Value Ref Left atrium Value Ref Diam 2.5 cm --------- AP dim, ES 3.70 cm 3.00 - 4.00 ML dim, A4C 6.0 cm SI dim, A4C 5.5 cm Vol/bsa, ES, 1-p (H) 51 ml/m^2 12 - 37 A4C Vol/bsa, ES, A/L (H) 53 ml/m^2 16 - 34 Legend: (L) and (H) avery values outside specified reference range. Prepared and electronically signed by Christian Fields MD 07/01/2019 09:36
[2019-07-01 10:40] LABS: Urine Appearance Clear; Urine Bilirubin Negative (Negative); Urine Blood Negative (Negative); Urine Color Yellow; Urine Glucose Negative (Negative); Urine Ketones Negative (Negative); Urine Nitrite Negative (Negative); Urine Protein Negative (Negative); Urine Specific Gravity 1.009 (1.010-1.030); Urine Urobilinogen Negative (Negative)
--- NOTE | 2019-07-01 12:18 | PN ---
Subjective Date of Service: 07/01/19 Interval History: Patient feeling unchanged from yesterday, feeling tired. Denies difficulty breathing, chest pain, abdominal pain, nausea, vomiting. Sounds like he is supposed to wear 4L oxygen at home, but has only been wearing at night Past Medical History: Unchanged from Admission Objective Active Medications: Alprazolam (Xanax Tab*) 0.25 mg PO BID PRN PRN Reason: ANXIETY Last Admin: 06/30/19 20:59 Dose: 0.25 mg Aspirin (Aspirin 81 Mg Chew Tab*) 81 mg PO DAILY COUNTS INCLUDE 234 BEDS AT THE [facility] Last Admin: 07/01/19 08:45 Dose: 81 mg Atorvastatin Calcium (Lipitor*) 10 mg PO DAILY COUNTS INCLUDE 234 BEDS AT THE [facility]; Protocol Last Admin: 07/01/19 08:46 Dose: 10 mg Cholecalciferol (Vitamin D Tab*) 1,000 units PO DAILY COUNTS INCLUDE 234 BEDS AT THE [facility] Last Admin: 07/01/19 08:46 Dose: 1,000 units Dextrose (Dextrose 50% Vial 50 Ml*) 50 ml IV ONCE JAYLIN Stop: 07/01/19 16:59 Last Admin: 06/30/19 18:25 Dose: 50 ml Dextrose (D50w Syringe 50 Ml*) 25 gm IV PUSH .FOR FS < 60 - SS PRN PRN Reason: FS < 60 Fluticasone Propionate (Flonase Nasal [place] 50mcg*) 2 spray BOTH NARES WEEKLY COUNTS INCLUDE 234 BEDS AT THE [facility] Furosemide (Lasix Iv*) 40 mg IV 0800,1700 COUNTS INCLUDE 234 BEDS AT THE [facility] Last Admin: 07/01/19 08:48 Dose: 40 mg Heparin Sodium (Porcine) (Heparin Vial(*)) 5,000 units SUBCUT Q8HR COUNTS INCLUDE 234 BEDS AT THE [facility] Last Admin: 07/01/19 05:55 Dose: 5,000 units Metoprolol Succinate (Toprol Xl Tab*) 25 mg PO DAILY COUNTS INCLUDE 234 BEDS AT THE [facility] Last Admin: 07/01/19 08:16 Dose: Not Given Midodrine (Midodrine) 10 mg PO TID COUNTS INCLUDE 234 BEDS AT THE [facility]; Protocol Last Admin: 07/01/19 08:46 Dose: 10 mg Nitroglycerin (Nitroglycerin Tab 0.4 Mg*) 0.4 mg SL Q5M PRN PRN Reason: ANGINA Oxycodone HCl (Roxycodone Tab*) 10 mg PO Q4H PRN PRN Reason: PAIN Oxycodone HCl (Oxycontin(*)) 20 mg PO Q12HR COUNTS INCLUDE 234 BEDS AT THE [facility] Last Admin: 07/01/19 08:46 Dose: 20 mg Pantoprazole Sodium (Protonix Tab*) 40 mg PO DAILY COUNTS INCLUDE 234 BEDS AT THE [facility] Last Admin: 07/01/19 08:46 Dose: 40 mg Patiromer (Veltassa Powder*) 8.4 gm PO DAILY COUNTS INCLUDE 234 BEDS AT THE [facility] Last Admin: 07/01/19 09:06 Dose: 8.4 gm Polyethylene Glycol/Electrolytes (Miralax*) 17 gm PO DAILY PRN PRN Reason: CONSTIPATION Last Admin: 06/30/19 20:58 Dose: 17 gm Tamsulosin HCl (Flomax Cap*) 0.4 mg PO DAILY COUNTS INCLUDE 234 BEDS AT THE [facility] Last Admin: 07/01/19 08:45 Dose: 0.4 mg Vital Signs - 8 hr 07/01/19 07/01/19 07/01/19 04:22 07:15 07:22 Temperature 98.4 F 97.9 F Pulse Rate 63 61 Respiratory 14 16 16 Rate Blood Pressure 89/40 91/41 (mmHg) O2 Sat by Pulse 92 93 Oximetry 07/01/19 07/01/19 07/01/19 07:43 08:46 10:34 Temperature Pulse Rate Respiratory 16 20 Rate Blood Pressure 102/58 (mmHg) O2 Sat by Pulse Oximetry 07/01/19 11:10 Temperature 97.3 F Pulse Rate 67 Respiratory 16 Rate Blood Pressure 101/44 (mmHg) O2 Sat by Pulse 95 Oximetry Oxygen Devices in Use Now: Nasal Cannula Appearance: obese, elderly white male, laying upright in bed, in NAD Eyes: No Scleral Icterus, - - PERRL Ears/Nose/Mouth/Throat: Mucous Membranes Moist, - - poor dentition Neck: NL Appearance and Movements; NL JVP Respiratory: Symmetrical Chest Expansion and Respiratory Effort, Clear to Auscultation Cardiovascular: RRR, - - systolic murmur Abdominal: - - abdomen is erythematous in dependent regions with trace pitting edema; abdomen is distended and nontender; normoactive [id number] Extremities: No Clubbing, Cyanosis, - - +3 pitting edema pretibially bilaterally Skin: No Rash or Ulcers Neurological: Alert and Oriented x 3, NL Muscle Strength and Tone Result Diagrams: 07/01/19 05:42 07/01/19 05:42 Additional Lab and Data: Lab Results 06/30/19 Range/Units 14:13 VBG pH 7.32 (7.32-7.43) VBG pCO2 63 H (41-51) mmHg VBG pO2 < 38.0 (35-45) mmHg VBG HCO3 27.2 (24-28) mmol/L VBG O2 Saturation 54.8 L (70-80) % VBG Base Excess 4.5 H (0.0-4.0) mmol/L Diagnostic Imaging: The peak systolic velocity is 3.6 m/sec. The mean systolic gradient is 31.0 mm Hg. The valve area by the velocity-time integral method is 1.21 cm^2. Recommendations: Compared to prior study from 07/2014, LVEF previously 45% and was mild. Transthoracic Echocardiogram Findings Left ventricle: The cavity size is normal. Wall thickness is mildly increased. Systolic function is normal. The estimated ejection fraction is 55-60%. Regional wall motion abnormalities: Moderate hypokinesis of the mid-apical inferior and mid inferolateral myocardium. Left ventricular diastolic function parameters are indeterminate. Right ventricle: Not well visualized, it appears dilated/dysfunctional in some views. Systolic pressure cannot be accurately determined, but appears to be increased. Left atrium: The atrium is moderately dilated. Right atrium: Not well visualized. Mitral valve: The leaflets are mildly thickened. There is no evidence of stenosis. There is trace to mild regurgitation. Aortic valve: The valve is trileaflet. The leaflets are moderately calcified. The findings are consistent with moderate stenosis. There is no significant regurgitation. Tricuspid valve: Not well visualized. There is no evidence of stenosis. There is trace regurgitation. Pulmonic valve: Not well visualized. There is no evidence of stenosis. Aorta: Aortic root: The aortic root is appears normal. Ascending aorta: The ascending aorta is appears normal. Aortic arch: The aortic arch is poorly visualized. Pericardium: There is no significant pericardial effusion. Pulmonary arteries: Poorly visualized. Systolic pressure can not be accurately estimated. Systemic veins: Inferior vena cava: The vessel is dilated. There is 50% respiratory change in the IVC dimension. Assess/Plan/Problems-Billing Assessment: 73 yo white male with PMHx alcoholic cirrhosis, CAD, HTN, RCC s/p nephrectomy, CKD, BPH, tobacco use presents with bilateral lower extremity edema. - Patient Problems (1) Bilateral lower extremity edema Current Visit: Yes Status: Acute Code(s): R60.0 - LOCALIZED EDEMA SNOMED Code(s): 882974288 Comment: -possibly related to poor adherence to eplerenone -IV lasix BID, cont epleronone -echo findings as above, given mild LV thickening could represent diastolic heart failure acute decompensation (2) Ascites Current Visit: Yes Status: Acute Code(s): R18.8 - OTHER ASCITES SNOMED Code(s): 548750056 Comment: -abd US demonstrates moderate ascites -plan for paracentesis tomorrow (3) Hypotension Current Visit: Yes Status: Acute Comment: -2/2 cirrhosis -increased midodrine from home dose -changed lasix to 40 mg IV BID instead of 60mg as originally planned -improving somewhat (4) Acute kidney injury superimposed on chronic kidney disease Current Visit: Yes Status: Acute Code(s): N17.9 - ACUTE KIDNEY FAILURE, UNSPECIFIED; N18.9 - CHRONIC KIDNEY DISEASE, UNSPECIFIED SNOMED Code(s): 74665482 Comment: -pt is s/p nephrectomy -possibly poor perfusion 2/2 ascites -fractional excretion of sodium contradicts fractional excretion of creatinine -appreciate nephrology consultation -ordering octreotide and renal diet per Dr. Alvaardo's suggestion -has mild hyperkalemia, continuing patiromer -Cr minimally decreased today (5) Alcoholic cirrhosis Current Visit: Yes Status: Acute Code(s): K70.30 - ALCOHOLIC CIRRHOSIS OF LIVER WITHOUT ASCITES SNOMED Code(s): 800721952 Comment: -daily drinker -INR WNL, AST/ALT minimally decreased in fact -will order WAM protocol (6) BPH (benign prostatic hypertrophy) Current Visit: No Status: Chronic Priority: Low Code(s): N40.0 - BENIGN PROSTATIC HYPERPLASIA WITHOUT LOWER URINRY TRACT SYMP SNOMED Code(s): 696540725 Comment: -on flomax -PVR today 300ccs, acceptable (7) CAD (coronary artery disease) Current Visit: No Status: Chronic Priority: Low Code(s): I25.10 - ATHSCL HEART DISEASE OF [place] CORONARY ARTERY W/O ANG PCTRS SNOMED Code(s): 52957278 Comment: -continue ASA, lipitor, metoprolol (8) Aortic stenosis Current Visit: Yes Status: Acute Code(s): I35.0 - NONRHEUMATIC AORTIC (VALVE ) STENOSIS SNOMED Code(s): 16712013 Comment: -moderate on echo today, new since echo in 2003 -c/w systolic murmur (9) Sleep related hypoxia Current Visit: Yes Status: Acute Code(s): G47.34 - IDIO SLEEP RELATED NONOBSTRUCTIVE ALVEOLAR HYPOVENTILATION SNOMED Code(s): 436039311 Comment: -patient wears 4L oxygen at night, it sounds as though he is supposed to wear during the day though is unclear -will attempt to find info from his PCP or medical equipment company (10) Full code status Current Visit: No Status: Acute Priority: Medium Onset Date: 08/02/14 Code(s): Z78.9 - OTHER SPECIFIED HEALTH STATUS SNOMED Code(s): 166718359 (11) DVT prophylaxis Current Visit: Yes Status: Acute Code(s): Z29.9 - ENCOUNTER FOR PROPHYLACTIC MEASURES, UNSPECIFIED SNOMED Code(s): 801109098 Comment: -subQ heparin Status and Disposition: inpatient pending further improvement
[2019-07-01] MEDS: CMC:Epleronone (NF) 25 MG TAB PO SCH (13:23)
[2019-07-01] MEDS ORDERED: LORazepam TAB(*) 1 MG PO SCH (20:00)
--- NOTE | 2019-07-01 21:06 | CONS ---
NEPHROLOGY INPATIENT CONSULT NOTE: DATE OF CONSULT: 07/01/19 CHIEF COMPLAINT: Acute kidney injury. HISTORY OF PRESENT ILLNESS: Mr. Thorne is a very nice 73-year-old gentleman who was admitted yesterday after being sent to the emergency room by the primary care physician for increasing lower extremity edema and abdominal girth. The patient is known to have alcoholic cirrhosis. First time he had serious ascites was about 2 years ago. He remembers that his ascites was tapped at that time, with about 7 liters fluid being removed. Apparently, he did not have any other problems since then. He does have a history of nephrectomy for renal cell carcinoma, so he had chronic kidney disease at baseline with a serum creatinine of 1.55 to 2.2 mg/dL. On 06/24/19,as an outpatient, he was noted to have an increasing serum creatinine up to 3.0 mg/ dL. When he presented to the emergency room, creatinine was up to 3.62 mg/dL. Today, remains the same at 3.45 mg/dL. He still makes urine. He has COPD and he uses oxygen at home, especially at night. He is very sedentary at home, does not do much around the house. He also has a significant history of coronary artery disease, status post 4 or 5 stents. he also has a history of GI bleeding with hemorrhagic shock in August 2014. PERSONAL MEDICAL HISTORY: Includes: 1. Cirrhosis due to alcohol. 2. Coronary artery disease status post PTCA and stenting. 3. GI bleed with hemorrhagic shock in 2014. 4. Renal cell carcinoma status post right nephrectomy. 5. History of horseshoe kidney. 6. BPH. 7. Breast surgery. 8. Hypertension. PAST SURGICAL HISTORY: 1. Ventral hernia repair. 2. PTCA with stent placement. CURRENT MEDICATIONS: 1. Xanax 0.25 mg p.o. p.r.n. for anxiety. 2. Aspirin 81 mg daily. 3. Atorvastatin 10 mg daily. 4. Cholecalciferol 1000 mg daily. 5. Dextrose as needed for hypoglycemia. 6. Eplerenone or Inspra, which is 25 mg daily. 7. Flonase 2 sprays both nares twice a day. 8. Furosemide IV 40 mg twice a day. 9. Heparin subcu 5000 units every 4 hours as scheduled. 10. Metoprolol succinate 25 mg p.o. daily. 11. Midodrine 10 mg p.o. t.i.d. 12. Nitroglycerin 0.4 mg sublingual p.r.n. angina. 13. Oxycodone 10 mg p.o. q.4 hours p.r.n. pain. 14. OxyContin 10 mg p.o. q.12 hours pain. 15. Protonix 40 mg daily. 16. Veltassa 8.5 g p.o. daily. 17. MiraLAX 17 g p.o. daily p.r.n. constipation. 18. Flomax 0.4 mg daily. 19. Octreotide 100 mcg p.o. 3 times a day. FAMILY HISTORY: Father of metastatic cancer. Mother is alive. She is 90 years old. She has a history of breast cancer and possibly rheumatoid arthritis. SOCIAL HISTORY: His many years ago. He now lives with his fiancee. Continues to drink alcohol daily. He is a life long smoker, since the age 18. He denies recreational drugs. REVIEW OF SYSTEMS: Constitutional: He is very weak at baseline and he is more tired today because he did not sleep last night. He has no apparent distress, but definitely is chronically ill and pale. Cardiovascular: He had short- lived episode of chest pain this morning that lasted 4 to 5 minutes. He usually has nitroglycerin at home, which he takes when he gets chest pain. This morning, for some reason, he did not ask for nitroglycerin and his pain subsided on its own after 4 to 5 minutes. He does not have any palpitations and shortness of breath is pretty much at his baseline. Generalized edema. Respiratory: He denies hemoptysis, cough, sputum production, wheezing. GI: He denies nausea and vomiting, he has no diarrhea and symptoms of constipation. He is supposed to take lactulose at home, but he does not take it consistently because of diarrhea. He has increased abdominal girth. Low appetite. : He has difficulties initiating the urine stream and flow is usually very slow. No hematuria. No dysuria. Musculoskeletal: Complains of back pain, joints are not swollen or red. Skin: Pale, but he does not have any itching, rashes, or ulcers. Psychiatric: He is oriented, he does not seem to be confused, he does not complain of memory loss. All other systems were reviewed and they were negative unless otherwise specified. PHYSICAL EXAMINATION: Blood pressure is 94/45 at the time of my visit. Oxygen saturation is 96% on 4L oxygen per nc, respiration rate 22, heart rate 71 beats per minute, and temperature 97.6. On admission, blood pressure was 95/44. Constitutional: In no acute distress, chronically ill, pleasant and conversant. Neck is very short, good range of motion, no thyromegaly, trachea midline, no lymphadenopathy appreciated. HEENT: Head is atraumatic and normocephalic. Ears and nose appeared normal. Conjunctivae pink, anicteric sclerae, pupils are equal and reactive to light. Chest: Has a few crackles at both bases. He does not have any wheezing. He has good respiratory effort. Heart exam shows S1, S2 normal, regular rate and rhythm. No murmurs, rubs, or gallops. +4 lower extremity edema extending up to his abdomen. GI: He has distended abdomen with dullness to percussion in the infraumbilical area, bulging umbilicus, caput medusae present. Abdomen is nontender, and he has no rebound. Neurological: Speech is fluent although a little slow, grossly nonfocal, no tremors. Psychiatric: He is alert and oriented x3. Memory seems to be intact. Judgement appropriate. Insight appropriate. Skin: Pale. He has some spider angiomas on the chest. No ulcers. Normal turgor. LABORATORY DATA: Labs show a serum creatinine of 3.64 yesterday and 3.45 today , potassium is 5.3 mmol/L, sodium 137, total CO2 30, BUN of 60, glucose 88, hemoglobin A1c 6.7%, magnesium 2.4. AST 10 units per liter and ALT 4 units per liter; they are both low probably because of cirrhosis. BNP is greater than 1300. UA shows no protein, no blood. Urinary sodium was 49 mmol/L. Hemoglobin is 10.8, white blood cell count 5.8, platelets normal at 211. INR is normal at 1.09. ASSESSMENT AND PLAN: Mr. Thorne is a very nice, but unfortunate 73-year-old male who is admitted with anasarca and with known history of alcoholic cirrhosis , chronic kidney disease, coronary artery disease. 1. Acute kidney injury on chronic kidney disease. His current acute kidney injury seems to be most likely secondary to hepatorenal syndrome. Because he is so volume overloaded, I would not do any albumin challenge. His urinary sodium was high at 49, but it is hard to interpret while he is being receiving Lasix IV and he also has chronic kidney disease, which can diminish the ability of the kidneys to retain sodium. The fact that he came with low blood pressure , does not have any septic picture, and most probably does not have spontaneous bacterial peritonitis as he does not have any abdominal symptoms and no fevers, no chills, no white blood cell count, no bleeding from esophageal varices, most probably his MELECIO is due to HRS. So, he may recover kidney function depending on how his hepatorenal syndrome is going to evolve from here. Continue midodrine 10 t.i.d. Add octreotide 100 mcg sq tid. 2. Anasarca. Continue with Lasix IV 40 twice a day. The patient states that he has very good urine output after Lasix IV. Low sodium diet . We need strict I 's and O's, daily weights. 3. Hyperkalemia. Low potassium diet. Continue Veltassa. We can continue Inspra for now and see how things are going. 4. Hypotension. Most probably secondary to hepatorenal syndrome. Continue beta- blockers to prevent bleeding from esophageal varices. 5. Coronary artery disease. It seems that he has stable angina. [id number]/[facility] #: [id number] [facility]
[2019-07-01] MEDS: Octreotide Acetate* 100 MCG/ML 1 ML VIAL SUBCUT SCH (21:24)
[2019-07-01] MEDS: ALPRAZolam TAB* 0.25 MG PO PRN (21:37)
[2019-07-02] MEDS: Heparin VIAL(*) 5000 UNITS/ML VIAL (FIVE THOUSAND) SUBCUT SCH ×3 (05:58→20:26)
[2019-07-02 06:15] LABS: Hematocrit 33 % (42-52); Hemoglobin 10.2 g/dL (14.0-18.0); Mean Corpuscular HGB Conc 31 g/dL (31-36); Mean Corpuscular Hemoglobin 27 pg (27-31); Mean Corpuscular Volume 85 fL (80-94); Mean Platelet Volume 8.7 fL (7.4-10.4); Platelet Count 171 10^3/uL (150-450); Red Blood Count 3.82 10^6 /uL (4.18-5.48); Red Cell Distribution Width 21 % (10-15); White Blood Count 4.1 10^3/uL (3.5-10.8)
[2019-07-02 06:36] LABS: BUN/Creatinine Ratio 17.9 (8-20); Calcium 8.8 mg/dL (8.6-10.3); EGFR African American 23.9 (>60); EGFR Non-African American 19.7 (>60); Magnesium 2.2 mg/dL (1.9-2.7); Phosphorus 4.3 mg/dL (2.5-5.0); Potassium 4.6 mmol/L (3.5-5.0)
[2019-07-02 07:05] LABS: ABS Eosinophils 0.1 10^3/ul (0-0.6); ABS Lymphocytes 0.9 10^3/ul (1.0-4.8); ABS Monocytes 0.4 10^3/ul (0-0.8); ABS Neutrophils 2.6 10^3/ul (1.5-7.7); Eosinophil % 3.1 %; Lymphocyte % 22.6 %; Nucleated Red Blood Cells % 0.1
[2019-07-02] MEDS: Furosemide IV* 10 MG/ML VIAL (40 MG) IV SCH ×2 (07:59→16:29)
[2019-07-02] MEDS: Pantoprazole TAB * 40 MG TAB PO SCH (08:00)
[2019-07-02] MEDS: Aspirin 81 mg CHEW TAB* 81 MG TAB.CHEW PO SCH (08:00)
[2019-07-02] MEDS: Cholecalciferol TAB* 1000 UNITS PO SCH (08:00)
[2019-07-02] MEDS: Tamsulosin CAP* 0.4 MG PO SCH (08:00)
[2019-07-02] MEDS: oxyCODONE SR TAB(*) 20 MG TAB.SR PO SCH ×2 (08:01→20:26)
[2019-07-02] MEDS: Atorvastatin* 10 MG TAB PO SCH (08:01)
[2019-07-02] MEDS: ALPRAZolam TAB* 0.25 MG PO PRN (08:17)
[2019-07-02] MEDS: CMC:Epleronone (NF) 25 MG TAB PO SCH (08:18)
[2019-07-02] MEDS: Metoprolol Succinate XL TAB* 25 MG PO SCH (08:20)
[2019-07-02] MEDS: Octreotide Acetate* 100 MCG/ML 1 ML VIAL SUBCUT SCH ×3 (08:26→20:29)
--- NOTE | 2019-07-02 11:48 | PN ---
Subjective Date of Service: 07/02/19 Interval History: Previously, patient was refusing octreotide. After he discussed its indications with Dr. Alvarado, he is now OK with taking it. Patient has returned to floor after paracentesis and feels well. No longer having pain at side of abdomen. Denies chest pain, difficulty breathing, fever/ chills, nausea. Past Medical History: Unchanged from Admission Objective Active Medications: Alprazolam (Xanax Tab*) 0.25 mg PO BID PRN PRN Reason: ANXIETY Last Admin: 07/02/19 08:17 Dose: 0.25 mg Aspirin (Aspirin 81 Mg Chew Tab*) 81 mg PO DAILY JAYLIN Last Admin: 07/02/19 08:00 Dose: 81 mg Atorvastatin Calcium (Lipitor*) 10 mg PO DAILY [facility]; Protocol Last Admin: 07/02/19 08:01 Dose: 10 mg Cholecalciferol (Vitamin D Tab*) 1,000 units PO DAILY [facility] Last Admin: 07/02/19 08:00 Dose: 1,000 units Dextrose (D50w Syringe 50 Ml*) 25 gm IV PUSH .FOR FS < 60 - SS PRN PRN Reason: FS < 60 Eplerenone (Inspra (Nf)) 25 mg PO DAILY [facility]; Protocol Last Admin: 07/02/19 08:18 Dose: 25 mg Fluticasone Propionate (Flonase Nasal [place] 50mcg*) 2 spray BOTH NARES WEEKLY [facility] Furosemide (Lasix Iv*) 40 mg IV 0800,1700 [facility] Last Admin: 07/02/19 07:59 Dose: 40 mg Heparin Sodium (Porcine) (Heparin Vial(*)) 5,000 units SUBCUT Q8HR [facility] Last Admin: 07/02/19 05:58 Dose: 5,000 units Lorazepam (Ativan Tab(*)) 0 - 6 mg PO .PER [facility] PROTOCOL [facility]; Protocol Metoprolol Succinate (Toprol Xl Tab*) 25 mg PO DAILY [facility] Last Admin: 07/02/19 08:20 Dose: 25 mg Midodrine (Midodrine) 10 mg PO TID [facility]; Protocol Last Admin: 07/02/19 08:01 Dose: 10 mg Nitroglycerin (Nitroglycerin Tab 0.4 Mg*) 0.4 mg SL Q5M PRN PRN Reason: ANGINA Octreotide Acetate (Octreotide Acetate*) 100 mcg SUBCUT TID [facility] Last Admin: 07/02/19 08:26 Dose: 100 mcg Oxycodone HCl (Roxycodone Tab*) 10 mg PO Q4H PRN PRN Reason: PAIN Oxycodone HCl (Oxycontin(*)) 20 mg PO Q12HR [facility] Last Admin: 07/02/19 08:01 Dose: 20 mg Pantoprazole Sodium (Protonix Tab*) 40 mg PO DAILY [facility] Last Admin: 07/02/19 08:00 Dose: 40 mg Polyethylene Glycol/Electrolytes (Miralax*) 17 gm PO DAILY PRN PRN Reason: CONSTIPATION Last Admin: 06/30/19 20:58 Dose: 17 gm Tamsulosin HCl (Flomax Cap*) 0.4 mg PO DAILY [facility] Last Admin: 07/02/19 08:00 Dose: 0.4 mg Vital Signs - 8 hr 07/02/19 07/02/19 07/02/19 05:00 05:21 05:22 Temperature 97.6 F Pulse Rate 86 Respiratory 16 14 14 Rate Blood Pressure 97/46 (mmHg) O2 Sat by Pulse 93 Oximetry 07/02/19 07/02/19 07/02/19 07:53 07:59 08:01 Temperature 98 F Pulse Rate 68 Respiratory 18 17 Rate Blood Pressure 102/49 114/60 (mmHg) O2 Sat by Pulse 95 Oximetry 07/02/19 07/02/19 08:17 09:57 Temperature Pulse Rate 57 Respiratory 18 18 Rate Blood Pressure 96/37 (mmHg) O2 Sat by Pulse 95 Oximetry Oxygen Devices in Use Now: Nasal Cannula Appearance: Obese, elderly white male, laying upright in hospital bed, appearing comfortable and in NAD Eyes: No Scleral Icterus, - - PERRL Ears/Nose/Mouth/Throat: Mucous Membranes Moist Neck: NL Appearance and Movements; NL JVP Respiratory: Symmetrical Chest Expansion and Respiratory Effort, Clear to Auscultation Cardiovascular: NL Sounds; No Murmurs; No JVD, RRR Abdominal: - - abdomen now soft, nontender, nondistended; bandage on LLQ at site of paracentesis Extremities: No Clubbing, Cyanosis, - - +2 pitting edema pretibially bilaterally Skin: No Rash or Ulcers, - - blanchable erythema in lower abdomen and on bilateral LEs, consistent with dependent edema Neurological: Alert and Oriented x 3, NL Muscle Strength and Tone Result Diagrams: 07/02/19 05:36 07/02/19 05:36 Additional Lab and Data: Lab Results 06/30/19 Range/Units 14:13 VBG pH 7.32 (7.32-7.43) VBG pCO2 63 H (41-51) mmHg VBG pO2 < 38.0 (35-45) mmHg VBG HCO3 27.2 (24-28) mmol/L VBG O2 Saturation 54.8 L (70-80) % VBG Base Excess 4.5 H (0.0-4.0) mmol/L Diagnostic Imaging: The peak systolic velocity is 3.6 m/sec. The mean systolic gradient is 31.0 mm Hg. The valve area by the velocity-time integral method is 1.21 cm^2. Recommendations: Compared to prior study from 07/2014, LVEF previously 45% and was mild. Transthoracic Echocardiogram Findings Left ventricle: The cavity size is normal. Wall thickness is mildly increased. Systolic function is normal. The estimated ejection fraction is 55-60%. Regional wall motion abnormalities: Moderate hypokinesis of the mid-apical inferior and mid inferolateral myocardium. Left ventricular diastolic function parameters are indeterminate. Right ventricle: Not well visualized, it appears dilated/dysfunctional in some views. Systolic pressure cannot be accurately determined, but appears to be increased. Left atrium: The atrium is moderately dilated. Right atrium: Not well visualized. Mitral valve: The leaflets are mildly thickened. There is no evidence of stenosis. There is trace to mild regurgitation. Aortic valve: The valve is trileaflet. The leaflets are moderately calcified. The findings are consistent with moderate stenosis. There is no significant regurgitation. Tricuspid valve: Not well visualized. There is no evidence of stenosis. There is trace regurgitation. Pulmonic valve: Not well visualized. There is no evidence of stenosis. Aorta: Aortic root: The aortic root is appears normal. Ascending aorta: The ascending aorta is appears normal. Aortic arch: The aortic arch is poorly visualized. Pericardium: There is no significant pericardial effusion. Pulmonary arteries: Poorly visualized. Systolic pressure can not be accurately estimated. Systemic veins: Inferior vena cava: The vessel is dilated. There is 50% respiratory change in the IVC dimension. Assess/Plan/Problems-Billing Assessment: 73 yo white male with PMHx alcoholic cirrhosis, CAD, HTN, RCC s/p nephrectomy, CKD, BPH, tobacco use presents with bilateral lower extremity edema. - Patient Problems (1) Bilateral lower extremity edema Current Visit: Yes Status: Acute Code(s): R60.0 - LOCALIZED EDEMA SNOMED Code(s): 721283102 Comment: -possibly related to poor adherence to eplerenone -increasing to 60 mg IV lasix per Dr. Alvarado's rec -cont epleronone -echo findings as above, given mild LV thickening could represent diastolic heart failure acute decompensation -requires 2L continuous O2 at home. On 4L now, will attempt to wean (2) Ascites Current Visit: Yes Status: Acute Code(s): R18.8 - OTHER ASCITES SNOMED Code(s): 853773319 Comment: -2/2 alcoholic cirrhosis -abd US demonstrates moderate ascites -diagnostic and therapeutic paracentesis performed today. 6.5 L removed -giving 25 gm albumin -cell count, culture, and albumin of peritoneal fluid pending -low suspicion for SBP (3) Hypotension Current Visit: Yes Status: Acute Comment: -2/2 cirrhosis -increased midodrine from home dose -continuing to monitor closely since large volume paracentesis -improving somewhat (4) Acute kidney injury superimposed on chronic kidney disease Current Visit: Yes Status: Acute Code(s): N17.9 - ACUTE KIDNEY FAILURE, UNSPECIFIED; N18.9 - CHRONIC KIDNEY DISEASE, UNSPECIFIED SNOMED Code(s): 91194681 Comment: -pt is s/p nephrectomy -fractional excretion of sodium contradicts fractional excretion of creatinine -appreciate nephrology consultation. Believes consistent with hepatorenal syndrome -continue octreotide and renal diet per Dr. Alvarado's suggestion -hyperkalemia resolved, d/c patiromer -Cr minimally decreased today (5) Alcoholic cirrhosis Current Visit: Yes Status: Acute Code(s): K70.30 - ALCOHOLIC CIRRHOSIS OF LIVER WITHOUT ASCITES SNOMED Code(s): 693523222 Comment: -daily drinker -INR WNL, AST/ALT minimally decreased in fact -WAM protocol (6) BPH (benign prostatic hypertrophy) Current Visit: No Status: Chronic Priority: Low Code(s): N40.0 - BENIGN PROSTATIC HYPERPLASIA WITHOUT LOWER URINRY TRACT SYMP SNOMED Code(s): 305471001 Comment: -on flomax -PVR today 300ccs, acceptable (7) CAD (coronary artery disease) Current Visit: No Status: Chronic Priority: Low Code(s): I25.10 - ATHSCL HEART DISEASE OF [place] CORONARY ARTERY W/O ANG PCTRS SNOMED Code(s): 75788461 Comment: -continue ASA, lipitor, metoprolol (8) Aortic stenosis Current Visit: Yes Status: Acute Code(s): I35.0 - NONRHEUMATIC AORTIC (VALVE ) STENOSIS SNOMED Code(s): 31326339 Comment: -moderate on echo today, new since echo in 2003 -c/w systolic murmur (9) Full code status Current Visit: No Status: Acute Priority: Medium Onset Date: 08/02/14 Code(s): Z78.9 - OTHER SPECIFIED HEALTH STATUS SNOMED Code(s): 149804681 (10) DVT prophylaxis Current Visit: Yes Status: Acute Code(s): Z29.9 - ENCOUNTER FOR PROPHYLACTIC MEASURES, UNSPECIFIED SNOMED Code(s): 990473771 Comment: -subQ heparin Status and Disposition: inpatient pending further improvement
--- NOTE | 2019-07-02 13:47 | BRIEFOPN ---
Brief Operative/Procedure Note - Operation Details Pre-Op Diagnosis: Ascites secondary to alcoholic cirrhosis Post-Op Diagnosis: Ascites secondary to alcoholic cirrhosis Procedures: Paracentesis Surgeon(s)/Proceduralists: RUPESH Boo MD Anesthesia: 5mL 1% lidocaine Estimated Blood Loss: 15 cc Findings: 6.5 L ascitic fluid removed, minimally blood-tinged Specimen(s)/Culture(s) Description: Peritoneal fluid obtained for cell count, culture, and albumin Complications: Minimal bleeding during procedure, easily stopped with pressure after catheter removed. Otherwise no complications.
[2019-07-02 13:52] LABS: Body Fluid Source Peritonial Fluid
[2019-07-02] MEDS ORDERED: Albumin Human 25%* 25 GM/100 ML BTL IV ONE (14:00)
[2019-07-02 15:08] LABS: Body Fluid Mono 59 %; Body Fluid Other Cells 10
[2019-07-02] MEDS: oxyCODONE TAB* 5 MG TAB PO PRN (16:24)
--- NOTE | 2019-07-02 18:23 | PN ---
Progress Note - Progress Note Date of Service: 07/02/19 Note: Chief complaint: Acute kidney injury History of present illness: Patient had paracentesis today with a little over 6 L of ascites removed. I saw him after the procedure and he feels much improved. Is less tired and his breathing is much better. He continues to have significant volume overload. He denies nausea, vomiting, diarrhea. He had a short-lived episode of chest pain again this morning. Denies palpitations. He voids without any difficulties. Labs show a hemoglobin of 10.2, platelets 171, mildly improved creatinine at 3.13, total CO2 33, sodium 139, potassium 4.6 Physical exam Blood pressure 98/42, heart rate 59 bpm, respiration rate 17/min, oxygen saturation 94% on 3 L, temperature is 97.7 Constitutional: Chronically ill but in no acute distress, conversant Chest : Crackles in both bases no wheezes Heart exam shows S1-S2 regular rate and rhythm no murmurs rubs or gallops. 3+ lower extremities edema extending up to the abdomen Abdomen: Distended but less than yesterday, soft, nontender. Extremities: No clubbing or cyanosis Assessment and plan: 1. Acute kidney injury due to hepatorenal syndrome - Continue octreotide and midodrine 2. Ascites with large volume paracentesis - Discussed with primary provider regarding albumin infusion of 25 g 3. Volume overload with significant lower extremities and abdominal wall edema associated with ascites. Increase Lasix to 60 mg IV twice a day
[2019-07-02] MEDS: Furosemide IV* 10 MG/ML 10 ML VIAL (100 MG) IV SCH (20:25)
--- NOTE | 2019-07-02 23:01 | PRO ---
AMENDED REPORT NOW INCLUDES DATE OF PROCEDURE DATE OF PROCEDURE: 07/02/19 PROCEDURE: Abdominal paracentesis. PROVIDERS: KARON Boo, proctored by Chavo Rasheed MD. INDICATION: Diagnostic and therapeutic paracentesis. ANESTHESIA: Not applicable. Consent was obtained prior to procedure. Indication, risks and benefits were explained to the patient. DESCRIPTION OF PROCEDURE: Ultrasound guidance was used to locate and marked anesthetic pocket. Previous labs and images were reviewed. Time out was completed verifying correct patient and procedure site. Patient allergies were reviewed. The patient was positioned upright in bed. The left lower quadrant of the abdomen was sterilized with Chlorhexidine and draped in a sterile fashion. 1% lidocaine approximately 5 mL was used to anesthetize the area on the left lower quadrant of the abdomen. Scalpel was used to make small approximately 0.5cm incision to the skin. Standard paracentesis kit, 8-Sami was used and introduced into the peritoneal space. Yellow ascitic fluid was aspirated. The paracentesis needle was removed and the catheter was advanced into the peritoneum. The catheter was attached to the Vacutainer. Collection into the Vacutainer did demonstrate ascitic fluid which was red-tinged. Ascitic fluid was sent for cell count, Gram stain, culture, and albumin. 6.5 L of ascitic fluid were removed in total. The catheter was removed and the patient had minimal bleeding. The patient tolerated the procedure well. A bandage was placed over puncture wound. COMPLICATIONS: None. BLOOD LOSS: Minimal. Dr. Chavo Rasheed was present during the entire procedure. Additionally, Dr. Issac Fernandez was immediately available by telephone during the entire procedure. KARON BOO [id number]/[facility] #: [id number] [facility]
[2019-07-03 05:24] LABS: ABS Basophils 0.1 10^3/ul (0-0.2); ABS Eosinophils 0.2 10^3/ul (0-0.6); ABS Lymphocytes 0.7 10^3/ul (1.0-4.8); ABS Monocytes 0.6 10^3/ul (0-0.8); ABS Neutrophils 2.5 10^3/ul (1.5-7.7); Eosinophil % 4.9 %; Hematocrit 33 % (42-52); Hemoglobin 10.2 g/dL (14.0-18.0); Lymphocyte % 18.1 %; Mean Corpuscular HGB Conc 31 g/dL (31-36); Mean Corpuscular Hemoglobin 27 pg (27-31); Mean Corpuscular Volume 86 fL (80-94); Mean Platelet Volume 8.6 fL (7.4-10.4); Nucleated Red Blood Cells % 0.1; Platelet Count 163 10^3/uL (150-450); Red Blood Count 3.85 10^6 /uL (4.18-5.48); Red Cell Distribution Width 20 % (10-15)
[2019-07-03 05:44] LABS: Calcium 9.1 mg/dL (8.6-10.3); Potassium 4.1 mmol/L (3.5-5.0)
[2019-07-03 05:50] LABS: BUN/Creatinine Ratio 17.5 (8-20); EGFR African American 26.5 (>60); EGFR Non-African American 21.9 (>60)
[2019-07-03] MEDS: Heparin VIAL(*) 5000 UNITS/ML VIAL (FIVE THOUSAND) SUBCUT SCH ×4 (06:05→21:00)
[2019-07-03] MEDS: Furosemide IV* 10 MG/ML 10 ML VIAL (100 MG) IV SCH (07:28)
[2019-07-03] MEDS: CMC:Epleronone (NF) 25 MG TAB PO SCH (08:52)
[2019-07-03] MEDS: Atorvastatin* 10 MG TAB PO SCH (08:52)
[2019-07-03] MEDS: Pantoprazole TAB * 40 MG TAB PO SCH (08:53)
[2019-07-03] MEDS: Aspirin 81 mg CHEW TAB* 81 MG TAB.CHEW PO SCH (08:53)
[2019-07-03] MEDS: Tamsulosin CAP* 0.4 MG PO SCH (08:54)
[2019-07-03] MEDS: Metoprolol Succinate XL TAB* 25 MG PO SCH (08:54)
[2019-07-03] MEDS: oxyCODONE SR TAB(*) 20 MG TAB.SR PO SCH ×2 (08:54→20:09)
[2019-07-03] MEDS: Cholecalciferol TAB* 1000 UNITS PO SCH (08:54)
[2019-07-03] MEDS: Octreotide Acetate* 100 MCG/ML 1 ML VIAL SUBCUT SCH ×3 (08:55→20:09)
[2019-07-03] MEDS: ALPRAZolam TAB* 0.25 MG PO PRN ×2 (09:03→20:10)
[2019-07-03] MEDS ORDERED: Artificial Tears* 15 ML BTL BOTH EYES PRN (10:33)
[2019-07-03] MEDS ORDERED: EPLERONONE 25 MG PO ONE (10:34)
--- NOTE | 2019-07-03 10:39 | PN ---
Subjective Date of Service: 07/03/19 Interval History: Patient complaining of bilateral eye tearing today. No acute events overnight. Patient understands the risks of continuing to drink alcohol. He says, "It looks like I have no choice but to quit or else I will ." He quit drinking for 10 ears [phone] and believes he will be able to do it again. He does not have interest in utilizing a drug/alcohol addiction counselor. He states he has been recently cutting down how much he smokes and is also encouraged to quit smoking. Declines nicotine patch and says he has not been having cravings. He is not interested in subacute rehab at discharge and would prefer to be discharged to home. He denies abdominal pain, nausea, vomiting, difficulty breathing, chest pain. Past Medical History: Unchanged from Admission Objective Active Medications: Alprazolam (Xanax Tab*) 0.25 mg PO BID PRN PRN Reason: ANXIETY Last Admin: 07/03/19 09:03 Dose: 0.25 mg Aspirin (Aspirin 81 Mg Chew Tab*) 81 mg PO DAILY JAYLIN Last Admin: 07/03/19 08:53 Dose: 81 mg Atorvastatin Calcium (Lipitor*) 10 mg PO DAILY [facility]; Protocol Last Admin: 07/03/19 08:52 Dose: 10 mg Cholecalciferol (Vitamin D Tab*) 1,000 units PO DAILY [facility]AYLIN Last Admin: 07/03/19 08:54 Dose: 1,000 units Dextrose (D50w Syringe 50 Ml*) 25 gm IV PUSH .FOR FS < 60 - SS PRN PRN Reason: FS < 60 Eplerenone (Inspra (Nf)) 25 mg PO DAILY [facility]; Protocol Last Admin: 07/03/19 08:52 Dose: 25 mg Fluticasone Propionate (Flonase Nasal [place] 50mcg*) 2 spray BOTH NARES WEEKLY [facility] Furosemide (Lasix Iv*) 60 mg IV 0800,1700 JAYLIN Last Admin: 07/03/19 07:28 Dose: 60 mg Heparin Sodium (Porcine) (Heparin Vial(*)) 5,000 units SUBCUT Q8HR [facility]AY[facility] Last Admin: 07/03/19 06:05 Dose: 5,000 units Lorazepam (Ativan Tab(*)) 0 - 6 mg PO .PER [facility] PROTOCOL [facility]; Protocol Metoprolol Succinate (Toprol Xl Tab*) 25 mg PO DAILY [facility] Last Admin: 07/03/19 08:54 Dose: 25 mg Midodrine (Midodrine) 10 mg PO TID [facility]; Protocol Last Admin: 07/03/19 08:53 Dose: 10 mg Nitroglycerin (Nitroglycerin Tab 0.4 Mg*) 0.4 mg SL Q5M PRN PRN Reason: ANGINA Octreotide Acetate (Octreotide Acetate*) 100 mcg SUBCUT TID [facility] Last Admin: 07/03/19 08:55 Dose: 100 mcg Oxycodone HCl (Roxycodone Tab*) 10 mg PO Q4H PRN PRN Reason: PAIN Last Admin: 07/02/19 16:24 Dose: 10 mg Oxycodone HCl (Oxycontin(*)) 20 mg PO Q12HR [facility] Last Admin: 07/03/19 08:54 Dose: 20 mg Pantoprazole Sodium (Protonix Tab*) 40 mg PO DAILY [facility] Last Admin: 07/03/19 08:53 Dose: 40 mg Polyethylene Glycol/Electrolytes (Miralax*) 17 gm PO DAILY PRN PRN Reason: CONSTIPATION Last Admin: 06/30/19 20:58 Dose: 17 gm Tamsulosin HCl (Flomax Cap*) 0.4 mg PO DAILY [facility] Last Admin: 07/03/19 08:54 Dose: 0.4 mg Vital Signs - 8 hr 07/03/19 07/03/19 07/03/19 03:00 03:15 05:00 Temperature 97.5 F Pulse Rate 61 Respiratory 18 18 16 Rate Blood Pressure 110/51 (mmHg) O2 Sat by Pulse 95 Oximetry 07/03/19 07/03/19 07/03/19 05:58 07:15 08:54 Temperature 97.5 F Pulse Rate 70 Respiratory 14 20 16 Rate Blood Pressure 103/46 (mmHg) O2 Sat by Pulse 91 Oximetry 07/03/19 09:03 Temperature Pulse Rate Respiratory 17 Rate Blood Pressure (mmHg) O2 Sat by Pulse Oximetry Oxygen Devices in Use Now: Nasal Cannula Appearance: Elderly white male, laying upright in bed, appearing comfortable and in NAD Eyes: No Scleral Icterus, - - PERRL Ears/Nose/Mouth/Throat: Mucous Membranes Moist Neck: NL Appearance and Movements; NL JVP Respiratory: Symmetrical Chest Expansion and Respiratory Effort, Clear to Auscultation Cardiovascular: NL Sounds; No Murmurs; No JVD, RRR Abdominal: NL Sounds; No Tenderness; No Distention Extremities: No Clubbing, Cyanosis, - - +1 pitting edema to bilateral LEs pretibially which is improved Skin: - - erythema to bilateral LEs and lower abdomen is minimally improved Neurological: Alert and Oriented x 3, NL Muscle Strength and Tone Result Diagrams: 07/03/19 04:49 07/03/19 04:49 Additional Lab and Data: Lab Results 06/30/19 Range/Units 14:13 VBG pH 7.32 (7.32-7.43) VBG pCO2 63 H (41-51) mmHg VBG pO2 < 38.0 (35-45) mmHg VBG HCO3 27.2 (24-28) mmol/L VBG O2 Saturation 54.8 L (70-80) % VBG Base Excess 4.5 H (0.0-4.0) mmol/L Microbiology and Other Data: Microbiology 07/02/19 13:04 Gram Stain - Final Body Fluid Diagnostic Imaging: The peak systolic velocity is 3.6 m/sec. The mean systolic gradient is 31.0 mm Hg. The valve area by the velocity-time integral method is 1.21 cm^2. Recommendations: Compared to prior study from 07/2014, LVEF previously 45% and was mild. Transthoracic Echocardiogram Findings Left ventricle: The cavity size is normal. Wall thickness is mildly increased. Systolic function is normal. The estimated ejection fraction is 55-60%. Regional wall motion abnormalities: Moderate hypokinesis of the mid-apical inferior and mid inferolateral myocardium. Left ventricular diastolic function parameters are indeterminate. Right ventricle: Not well visualized, it appears dilated/dysfunctional in some views. Systolic pressure cannot be accurately determined, but appears to be increased. Left atrium: The atrium is moderately dilated. Right atrium: Not well visualized. Mitral valve: The leaflets are mildly thickened. There is no evidence of stenosis. There is trace to mild regurgitation. Aortic valve: The valve is trileaflet. The leaflets are moderately calcified. The findings are consistent with moderate stenosis. There is no significant regurgitation. Tricuspid valve: Not well visualized. There is no evidence of stenosis. There is trace regurgitation. Pulmonic valve: Not well visualized. There is no evidence of stenosis. Aorta: Aortic root: The aortic root is appears normal. Ascending aorta: The ascending aorta is appears normal. Aortic arch: The aortic arch is poorly visualized. Pericardium: There is no significant pericardial effusion. Pulmonary arteries: Poorly visualized. Systolic pressure can not be accurately estimated. Systemic veins: Inferior vena cava: The vessel is dilated. There is 50% respiratory change in the IVC dimension. Assess/Plan/Problems-Billing Assessment: 73 yo white male with PMHx alcoholic cirrhosis, CAD, HTN, RCC s/p nephrectomy, CKD, BPH, tobacco use presents with bilateral lower extremity edema. - Patient Problems (1) Acute kidney injury superimposed on chronic kidney disease Current Visit: Yes Status: Acute Code(s): N17.9 - ACUTE KIDNEY FAILURE, UNSPECIFIED; N18.9 - CHRONIC KIDNEY DISEASE, UNSPECIFIED SNOMED Code(s): 36994616 Comment: -pt is s/p nephrectomy -fractional excretion of sodium contradicts fractional excretion of creatinine -appreciate nephrology consultation. Believes consistent with hepatorenal syndrome -continue octreotide and renal diet per Dr. Alvarado's suggestion -hyperkalemia resolved, though today acidosis minimally increased -Cr minimally decreased today (2) Bilateral lower extremity edema Current Visit: Yes Status: Acute Code(s): R60.0 - LOCALIZED EDEMA SNOMED Code(s): 554269598 Comment: -volume overload, possibly related to poor adherence to eplerenone -decreasing IV lasix to 40mg BID and increasing epleronone to 50mg daily per Dr. Alvarado's recommendation -echo findings as above, given mild LV thickening could represent diastolic heart failure acute decompensation (3) Ascites Current Visit: Yes Status: Acute Code(s): R18.8 - OTHER ASCITES SNOMED Code(s): 765208883 Comment: -2/2 alcoholic cirrhosis -abd US demonstrates moderate ascites -diagnostic and therapeutic paracentesis performed 07/02/19. 6.5 L removed and 25gm 25% albumin given -cell count not consistent with SBP as neutrophils low. Peritoneal fluid culture and albumin are pending (albumin is send out) (4) Hypotension Current Visit: Yes Status: Acute Comment: -2/2 cirrhosis -increased midodrine from home dose -continuing to monitor closely since large volume paracentesis, has been stable (5) Alcoholic cirrhosis Current Visit: Yes Status: Acute Code(s): K70.30 - ALCOHOLIC CIRRHOSIS OF [place]IVER WITHOUT ASCITES SNOMED Code(s): 467183951 Comment: -daily drinker -INR WNL, AST/ALT minimally decreased in fact -WAM protocol, has not required benzos per protocol -discussed alcohol cessation, patient is agreeable but declines referral to outpatient addiction counseling (6) Urine retention Current Visit: Yes Status: Acute Code(s): R33.9 - RETENTION OF URINE, UNSPECIFIED SNOMED Code(s): 808019512 Comment: -patient retaining >400cc urine post void -insert sommers catheter -has PMHx BPH, increasing home flomax dose -kidney US without hydronephrosis (7) CAD (coronary artery disease) Current Visit: No Status: Chronic Priority: Low Code(s): I25.10 - ATHSCL HEART DISEASE OF [place] CORONARY ARTERY W/O ANG PCTRS SNOMED Code(s): 91039846 Comment: -continue ASA, lipitor, metoprolol (8) Aortic stenosis Current Visit: Yes Status: Acute Code(s): I35.0 - NONRHEUMATIC AORTIC (VALVE ) STENOSIS SNOMED Code(s): 50749918 Comment: -moderate on echo today, new since echo in 2003 -c/w systolic murmur (9) COPD (chronic obstructive pulmonary disease) Current Visit: Yes Status: Acute Code(s): J44.9 - CHRONIC OBSTRUCTIVE PULMONARY DISEASE, UNSPECIFIED SNOMED Code(s): 69943324 Comment: -apparently patient carries dx of COPD but doesn't appear to be on home medications, despite being on 2L O2 continuous at home -at baseline oxygen requirement today, no signs of acute exacerbation -starting spiriva -discussed smoking cessation (10) Full code status Current Visit: No Status: Acute Priority: Medium Onset Date: 08/02/14 Code(s): Z78.9 - OTHER SPECIFIED HEALTH STATUS SNOMED Code(s): 282569650 (11) DVT prophylaxis Current Visit: Yes Status: Acute Code(s): Z29.9 - ENCOUNTER FOR PROPHYLACTIC MEASURES, UNSPECIFIED SNOMED Code(s): 156511930 Comment: -subQ heparin Status and Disposition: inpatient pending further improvement, anticipate d/c home when medically stable as patient refusing RINA
[2019-07-03 11:57] LABS: Fluid Type, Albumin PERITONEAL
[2019-07-03] MEDS: Dextran 70/Hypromellose Tears Eye Drops 15 ml BTL (for Artificials Tears) BOTH EYES PRN (13:18)
--- NOTE | 2019-07-03 14:29 | PN ---
Progress Note - Progress Note Date of Service: 07/03/19 Note: Chief complaint: Acute kidney injury History of present illness: Patient is doing well today. He denies chest pain, abdominal pain, nausea, vomiting and diarrhea. He responded very well to current dose of diuretics. He gets up and goes to the bathroom by himself. Swelling has decreased significantly. Labs show a sodium of 141, potassium of 4.1, total CO2 of 37 worsened, creatinine of 2.86, improved from a 3.13 yesterday. BUN of 50, hemoglobin of 10.2, He is in negative fluid balance of 1.2 L yesterday. Medications: Aspirin 81 mg daily Atorvastatin 10 mg daily Cholecalciferol thousand milligrams by mouth daily Eplerenone 25 mg daily Furosemide 40 mg IV twice a day Flonase 2 spray both nares weekly Heparin subcu 5000 units every 8 hours Midodrine 10 mg by mouth 3 times a day Metoprolol succinate 25 mg daily Octreotide 100 mcg subcu 3 times a day Protonix 40 mg daily Flomax 0.8 mg daily Spiriva 2 puffs daily Oxycodone 20 mg by mouth every 12 hours Oxycodone 10 mg by mouth every 4 hours when necessary pain Physical exam: Blood pressure 103/46, heart rate 70 bpm, oxygen saturation 91% on 3 L, temperature 97.5. Constitutional: In no acute distress, looking chronically ill, pleasant and conversant Chest: Few crackles in both bases, good respiratory effort. Heart: S1-S2 normal, regular rate and rhythm, no murmurs rubs or gallops. 3+ lower extremities edema extending up to the thighs which is much softer compared to yesterday Abdomen distended due to ascites, soft, nontender Extremities: No clubbing or cyanosis Psychiatric: Alert and oriented 3, mood normal, judgment and insight appropriate Assessment and plan: Marcell Thorne is a very nice 73-year-old gentleman with alcoholic cirrhosis, admitted for worsening ascites, worsening kidney function and anasarca. 1. Acute kidney injury due to hepatorenal syndrome, improving. Continue octreotide and midodrine. Continue diuresis. 2. Ascites improved after large volume paracentesis on July 02 3. Volume overload/anasarca- continue diuresis 4. Metabolic alkalosis is a side effect of the loop diuretic. Will decrease Lasix from 60 mg IV twice a day to 40 mg IV twice a day and increase Eplerenone to 50 milligrams daily, which hopefully will improve his metabolic alkalosis. There is some risk of hyperkalemia. Repeat labs in the morning. Discussed with the primary team.
[2019-07-03 15:22] LABS: Urine Appearance Clear; Urine Bilirubin Negative (Negative); Urine Blood Negative (Negative); Urine Color Straw; Urine Glucose Negative (Negative); Urine Ketones Negative (Negative); Urine Nitrite Negative (Negative); Urine Protein Negative (Negative); Urine Specific Gravity 1.008 (1.010-1.030); Urine Urobilinogen Negative (Negative)
[2019-07-03] MEDS: Furosemide IV* 10 MG/ML VIAL (40 MG) IV SCH (16:34)
[2019-07-03] MEDS: SPIRIVA Respimat* (tiotropium) 2.5 mcg/inh Inhaler INH SCH (16:58)
[2019-07-03] MEDS: Clotrimazole 1% CREAM* 45 GM TOPICAL SCH (20:08)
[2019-07-04] MEDS: Dextran 70/Hypromellose Tears Eye Drops 15 ml BTL (for Artificials Tears) BOTH EYES PRN ×3 (00:25→16:58)
[2019-07-04] MEDS: Polyethylene Glycol 3350* 17 GM PACKET PO PRN ×2 (00:25→14:10)
[2019-07-04] MEDS: Heparin VIAL(*) 5000 UNITS/ML VIAL (FIVE THOUSAND) SUBCUT SCH ×3 (05:34→21:08)
[2019-07-04] MEDS: oxyCODONE TAB* 5 MG TAB PO PRN (07:21)
[2019-07-04] MEDS: Furosemide IV* 10 MG/ML VIAL (40 MG) IV SCH ×2 (07:22→17:16)
[2019-07-04 07:39] LABS: Calcium 9.3 mg/dL (8.6-10.3); Potassium 4.2 mmol/L (3.5-5.0)
[2019-07-04 07:44] LABS: BUN/Creatinine Ratio 16.5 (8-20); EGFR Non-African American 23.1 (>60)
[2019-07-04] MEDS: SPIRIVA Respimat* (tiotropium) 2.5 mcg/inh Inhaler INH SCH (08:09)
[2019-07-04] MEDS: EPLERONONE 25 MG PO SCH (08:38)
[2019-07-04] MEDS: Metoprolol Succinate XL TAB* 25 MG PO SCH (08:42)
[2019-07-04] MEDS: Cholecalciferol TAB* 1000 UNITS PO SCH (08:42)
[2019-07-04] MEDS: Tamsulosin CAP* 0.4 MG PO SCH (08:42)
[2019-07-04] MEDS: Aspirin 81 mg CHEW TAB* 81 MG TAB.CHEW PO SCH (08:43)
[2019-07-04] MEDS: Pantoprazole TAB * 40 MG TAB PO SCH (08:43)
[2019-07-04] MEDS: Atorvastatin* 10 MG TAB PO SCH (08:43)
[2019-07-04] MEDS: Octreotide Acetate* 100 MCG/ML 1 ML VIAL SUBCUT SCH ×3 (08:45→21:09)
[2019-07-04] MEDS: Clotrimazole 1% CREAM* 45 GM TOPICAL SCH ×3 (08:46→21:06)
[2019-07-04] MEDS: ALPRAZolam TAB* 0.25 MG PO PRN ×2 (10:09→21:19)
[2019-07-04] MEDS: oxyCODONE SR TAB(*) 20 MG TAB.SR PO SCH ×2 (10:09→21:07)
--- NOTE | 2019-07-04 11:11 | PN ---
Progress Note - Progress Note Date of Service: 07/04/19 Note: Chief complaint: Acute kidney injury History of present illness: Patient continues to improve. Breathing is much better. Swelling is improved but still present. Denies recurrent chest pain. Denies palpitations, dysuria, hematuria. Denies abdominal pain. Lab work shows a creatinine of 2.73, BUN 45, total CO2 39, potassium 4.2, sodium 141. UA from yesterday was negative for blood and protein. Medications reviewed: No changes other than decreasing the furosemide to 40 mg IV twice a day and increasing eplerenone to 50 mg daily. Physical exam: Blood pressure 96/40, oxygen saturation 94% on 3 L, respiration rate is 16 bpm, temperature 97. 8. Constitutional: No acute distress, pleasant and conversant. Chest is clear to auscultation with good respiratory effort: No Heart auscultation showed S1-S2, regular rate and rhythm, no murmurs rubs or gallops Abdomen: Distended due to ascites, nontender, no rebound tenderness Psychiatric alert and oriented 3, judgment and insight appropriate, mood normal Extremities with +2 lower extremities edema extending to the knees. Assessment and plan: Patient is a very nice 73-year-old gentleman with alcoholic cirrhosis, admitted for worsening ascites and worsening kidney function. 1. Acute kidney injury due to hepatorenal syndrome/ alcoholic cirrosis Improving. 2. Ascites does not seem to be changed from yesterday 3. Volume overload/anasarca improving 4. Metabolic alkalosis as a side effect of the loop diuretic. He also has a history of COPD and emphysema and he is on oxygen at home. He uses it only at night but he should be using it during the day as well. Total CO2 on admission was 32. I think that the patient is a chronic CO2 retainer due to his COPD. Nevertheless in order not to worsen his metabolic alkalosis we can increase Eplerenone to 100 mg daily. Labs tomorrow.
--- NOTE | 2019-07-04 18:03 | PN ---
Subjective Date of Service: 07/04/19 Interval History: Patient has no new complaints. He is eating OK. Voiding in sommers, does not have long-term sommers. He denies history of significant alcohol withdrawal. Drinking up to 3 glasses wine/day up to day of admission. Family History: Unchanged from Admission Social History: Unchanged from Admission Past Medical History: Unchanged from Admission Objective Active Medications: Alprazolam (Xanax Tab*) 0.25 mg PO BID PRN PRN Reason: ANXIETY Last Admin: 07/04/19 10:09 Dose: 0.25 mg Artificial Tears (Natural Balance Tears Eye Drop) 1 drop BOTH EYES Q2H PRN PRN Reason: DRY EYE Last Admin: 07/04/19 16:58 Dose: 1 drop Aspirin (Aspirin 81 Mg Chew Tab*) 81 mg PO DAILY [facility] Last Admin: 07/04/19 08:43 Dose: 81 mg Atorvastatin Calcium (Lipitor*) 10 mg PO DAILY [facility]; Protocol Last Admin: 07/04/19 08:43 Dose: 10 mg Cholecalciferol (Vitamin D Tab*) 1,000 units PO DAILY [facility] Last Admin: 07/04/19 08:42 Dose: 1,000 units Clotrimazole (Clotrimazole 1%*) 1 applic TOPICAL BID [facility] Last Admin: 07/04/19 09:01 Dose: Not Given Dextrose (D50w Syringe 50 Ml*) 25 gm IV PUSH .FOR FS < 60 - SS PRN PRN Reason: FS < 60 Eplerenone (Inspra (Nf)) 50 mg PO DAILY [facility]; Protocol Last Admin: 07/04/19 08:38 Dose: 50 mg Fluticasone Propionate (Flonase Nasal [place] 50mcg*) 2 spray BOTH NARES WEEKLY [facility] Furosemide (Lasix Iv*) 40 mg IV 0800,1700 [facility] Last Admin: 07/04/19 17:16 Dose: 40 mg Heparin Sodium (Porcine) (Heparin Vial(*)) 5,000 units SUBCUT Q8HR [facility] Last Admin: 07/04/19 13:59 Dose: 5,000 units Lorazepam (Ativan Tab(*)) 0 - 6 mg PO .PER [facility] PROTOCOL [facility]; Protocol Metoprolol Succinate (Toprol Xl Tab*) 25 mg PO DAILY [facility] Last Admin: 07/04/19 08:42 Dose: 25 mg Midodrine (Midodrine) 10 mg PO TID [facility]; Protocol Last Admin: 07/04/19 13:59 Dose: 10 mg Nitroglycerin (Nitroglycerin Tab 0.4 Mg*) 0.4 mg SL Q5M PRN PRN Reason: ANGINA Octreotide Acetate (Octreotide Acetate*) 100 mcg SUBCUT TID [facility] Last Admin: 07/04/19 14:00 Dose: 100 mcg Oxycodone HCl (Roxycodone Tab*) 10 mg PO Q4H PRN PRN Reason: PAIN Last Admin: 07/04/19 07:21 Dose: 10 mg Oxycodone HCl (Oxycontin(*)) 20 mg PO Q12HR [facility] Last Admin: 07/04/19 10:09 Dose: 20 mg Pantoprazole Sodium (Protonix Tab*) 40 mg PO DAILY [facility] Last Admin: 07/04/19 08:43 Dose: 40 mg Polyethylene Glycol/Electrolytes (Miralax*) 17 gm PO DAILY PRN PRN Reason: CONSTIPATION Last Admin: 07/04/19 14:10 Dose: 17 gm Tamsulosin HCl (Flomax Cap*) 0.8 mg PO DAILY [facility] Last Admin: 07/04/19 08:42 Dose: 0.8 mg Tiotropium [place] (Spiriva Respimat 2.5 Mcg) 2 puff INH DAILY [facility] Last Admin: 07/04/19 08:09 Dose: 2 puff Vital Signs - 8 hr 07/04/19 07/04/19 07/04/19 10:09 11:15 12:05 Temperature 36.4 C Pulse Rate 53 Respiratory 17 16 17 Rate Blood Pressure 113/52 (mmHg) O2 Sat by Pulse 96 Oximetry 07/04/19 07/04/19 12:47 13:00 Temperature Pulse Rate 52 Respiratory 17 Rate Blood Pressure 110/50 (mmHg) O2 Sat by Pulse Oximetry Oxygen Devices in Use Now: Nasal Cannula Appearance: alert, cooperative, seated in chair Eyes: No Scleral Icterus Ears/Nose/Mouth/Throat: Clear Oropharnyx Respiratory: Symmetrical Chest Expansion and Respiratory Effort, Clear to Auscultation Cardiovascular: NL Sounds; No Murmurs; No JVD, RRR Abdominal: No Hepatosplenomegaly, - - distended, soft, NT Lymphatic: No Cervical Adenopathy Neurological: Alert and Oriented x 3 Lines/Tubes/Other Access: Clean, Dry and Intact Peripheral IV Nutrition: Taking PO's Result Diagrams: 07/03/19 04:49 07/04/19 07:08 Microbiology and Other Data: Microbiology 07/02/19 13:04 Body Fluid Gram Stain - Final 07/02/19 13:04 Body Fluid Anaerobic Culture - Preliminary No Growth Day 2 No Growth Day 2 Assess/Plan/Problems-Billing Assessment: 73 yo white male with PMHx alcoholic cirrhosis, CAD, HTN, RCC s/p nephrectomy, CKD, BPH, tobacco use presents with bilateral lower extremity edema. - Patient Problems (1) Hepatorenal syndrome Current Visit: Yes Status: Acute Priority: High Code(s): K76.7 - HEPATORENAL SYNDROME SNOMED Code(s): 94147046 Comment: -Appreciate input from Dr. Alvarado -Creatinine improving w/ additional diuresis (2) Alcoholic cirrhosis Current Visit: Yes Status: Acute Priority: High Code(s): K70.30 - ALCOHOLIC CIRRHOSIS OF LIVER WITHOUT ASCITES SNOMED Code(s): 816056904 Comment: -daily drinker -INR WNL, AST/ALT minimally decreased in fact -WAM protocol for monitoring -Can stop WAM protocol after 72h in hospital if no benzos needed -discussed alcohol cessation, patient is agreeable (3) Ascites Current Visit: Yes Status: Acute Priority: Medium Code(s): R18.8 - OTHER ASCITES SNOMED Code(s): 162777264 Comment: -Dr Alvarado advised continue octreotide and mitodrine -due to alcoholic cirrhosis -diagnostic and therapeutic paracentesis performed 07/02/19. 6.5 L removed and 25gm 25% albumin given -Appears not infected, following cultures (4) DVT prophylaxis Current Visit: Yes Status: Acute Priority: Low Code(s): Z29.9 - ENCOUNTER FOR PROPHYLACTIC MEASURES, UNSPECIFIED SNOMED Code(s): 615761878 Comment: -subQ heparin Status and Disposition: inpatient pending further improvement, anticipate d/c home when medically stable as patient refusing RINA
[2019-07-05] MEDS: oxyCODONE TAB* 5 MG TAB PO PRN (03:51)
[2019-07-05] MEDS: Dextran 70/Hypromellose Tears Eye Drops 15 ml BTL (for Artificials Tears) BOTH EYES PRN (04:19)
[2019-07-05] MEDS: Heparin VIAL(*) 5000 UNITS/ML VIAL (FIVE THOUSAND) SUBCUT SCH ×2 (05:22→15:17)
[2019-07-05 06:11] LABS: Calcium 9.3 mg/dL (8.6-10.3); Potassium 4.2 mmol/L (3.5-5.0)
[2019-07-05 06:16] LABS: BUN/Creatinine Ratio 14.9 (8-20); EGFR African American 29.3 (>60); EGFR Non-African American 24.2 (>60)
[2019-07-05] MEDS: Clotrimazole 1% CREAM* 45 GM TOPICAL SCH (07:45)
[2019-07-05] MEDS: SPIRIVA Respimat* (tiotropium) 2.5 mcg/inh Inhaler INH SCH (08:12)
[2019-07-05] MEDS: Octreotide Acetate* 100 MCG/ML 1 ML VIAL SUBCUT SCH ×2 (09:54→15:18)
[2019-07-05] MEDS: Furosemide IV* 10 MG/ML VIAL (40 MG) IV SCH (09:55)
[2019-07-05] MEDS: Tamsulosin CAP* 0.4 MG PO SCH (09:56)
[2019-07-05] MEDS: EPLERONONE 25 MG PO SCH (09:57)
[2019-07-05] MEDS: Atorvastatin* 10 MG TAB PO SCH (09:58)
[2019-07-05] MEDS: oxyCODONE SR TAB(*) 20 MG TAB.SR PO SCH (09:59)
[2019-07-05] MEDS: Cholecalciferol TAB* 1000 UNITS PO SCH (09:59)
[2019-07-05] MEDS: Pantoprazole TAB * 40 MG TAB PO SCH (09:59)
[2019-07-05] MEDS: Aspirin 81 mg CHEW TAB* 81 MG TAB.CHEW PO SCH (09:59)
[2019-07-05] MEDS: Metoprolol Succinate XL TAB* 25 MG PO SCH (10:04)
[2019-07-05] MEDS: ALPRAZolam TAB* 0.25 MG PO PRN (10:04)
[2019-07-05 13:20] VITALS: BP 102/48
--- NOTE | 2019-07-05 15:15 | PN ---
PROGRESS NOTE: DATE OF VISIT: 07/05/19 SUBJECTIVE: The patient was seen and examined at bedside. The patient reports feeling better, wishes to go home. Vitals and labs have been reviewed. PHYSICAL EXAMINATION: HEENT: NC/AT. Heart: S1, S2 present. Lungs: Clear to auscultation. Abdomen: Distended with some ascites. Extremities: Noted to have edema. Neuro: Alert. ASSESSMENT AND PLAN: 1. Acute kidney injury secondary to likely hepatorenal syndrome in the setting of alcoholic cirrhosis. 2. Underlying chronic kidney disease. The patient also has a history of renal cell carcinoma and history of horseshoe kidneys and follows closely with Urology as an outpatient. 3. At this point, recommend continuing the octreotide and midodrine for his hepatorenal syndrome and continuing his diuretics for his volume overload/ anasarca. The patient was on p.o. Lasix at home and when the patient goes home, the patient can be discharged on p.o. Lasix. 4. The patient is also on eplerenone that he takes as an outpatient and this can be continued. 5. The patient to follow up with Dr. Alvarado as an outpatient in clinic as the patient would need close followup with the GI and Nephrology service. 6. The patient agrees to stop drinking. It appears that the patient was evaluated for a liver transplant previously at [facility] as well and was told that he was not a candidate, we will discuss this further. 7. The patient to follow up with Dr. Alvarado in 2 weeks as an outpatient. [id number]/[facility] #: [id number] MTDD
--- NOTE | 2019-07-06 10:15 | DS ---
DISCHARGE SUMMARY: DATE OF ADMISSION: 06/30/19 DATE OF DISCHARGE: 07/05/19 ADMITTING PROVIDER AND ATTENDING PHYSICIAN ON THE DAY OF DISCHARGE: Dieudonne Royal MD PRIMARY CARE PROVIDER: Narayan Landa MD OUTPATIENT UROLOGIST: Dr. Chua. OUTPATIENT REGISTRATION MANAGER: Dr. [place]. OUTPATIENT MARINA MANAGER: Dr. Diaz. CONSULTING PROGRAMMING INSTRUCTOR: Dr. Pamela Alvarado. CHIEF COMPLAINT: Leg swelling, intermittent chest and abdominal pains. PRINCIPAL DIAGNOSES: 1. Acute renal failure in the setting of alcoholic cirrhosis, continued drinking, cannot rule out possibility of hepatorenal syndrome. 2. Severe hyperkalemia. HISTORY OF PRESENT ILLNESS AND HOSPITAL COURSE: Marcell Thorne is a 73-year- old male with a past medical history of alcoholic cirrhosis; coronary artery disease, status post stents; GI bleed with hemorrhagic shock in August 2014; renal cell carcinoma, status post right kidney nephrectomy; BPH; hyperlipidemia ; smoker; and alcoholism with current drinking. He was presented from Dr. Landa's office for continued weight gain, lower extremity edema, intermittent chest pains and abdominal pains. Please see H and P for full details, but briefly the patient presented with a creatinine of 3.62 up from 3.0 six days prior and 2.2 back in February. He had 2+ tense edema in his legs and quite distended with noticeable ascites in his abdomen. His BNP was detectable at greater than 1300. Troponin was elevated flat at 0.04. CRP was 14. He was started on IV diuretics and increased on his midodrine and then Dr. Alvarado consulted and recommended initiation of octreotide. He would ultimately get paracentesis on hospital day #3, which showed WBCs 2055, RBCs 4699 with 4% neutrophils. Albumin was 2.3 compared to serum albumin of 3.6 two days prior consistent with portal hypertension. Gram stain and blood cultures were no growth x3 days. He was never on antibiotics or febrile. He got improvement after 6.5 L was removed. This was performed by Smitha Briones in supervision of Dr. Rasheed. The patient's creatinine slowly improved each day and on discharge was 2.62 with BUN improved at 39 compared to 60. Initially, he was also severely hyperkalemic with a potassium 6.3, was given albuterol, insulin, dextrose, and patiromer with improved potassium levels. He was eager for discharge and threatened to leave against medical advice on the day of discharge. He plans to follow up with Dr. Alvarado. He did get a renal ultrasound on 07/03/19 which demonstrated no hydronephrosis on the left kidney, there was still a moderate amount of ascites noted. Notably he had been noncompliant, at least he said, with his eplerenone, although he was a poor historian of his medications and this can certainly be confirmed. He was found to be requiring oxygen both day and night and previously had been wearing it p.r.n. and at night. He had a transthoracic echocardiogram which demonstrated EF of 55% to 60%. There was a moderate hypokinesis in the mid-apical inferior and mid- inferolateral myocardium, moderate aortic stenosis. He had an abdominal ultrasound which also showed moderate amount of ascites in the left lower quadrant, right lower quadrant, and right upper quadrant. Additional lab evaluation included a normal INR at 1.09. AST and ALT were low. T-bili within normal limits at 0.4, AST 10, and ALT 4. Platelets 197. Sodium 136. DISCHARGE MEDICATIONS: Include: 1. Xanax 0.5 mg p.o. t.i.d. 2. Aspirin 81 mg p.o. daily. 3. Cholecalciferol 1000 units p.o. daily. 4. Eplerenone 25 mg p.o. b.i.d. 5. Lasix 40 mg p.o. b.i.d. (increased from 40 daily). 6. Ketoconazole shampoo 1 to 2 times a week. 7. Lactulose 30 mL p.o. t.i.d. 8. Metoprolol succinate 25 mg p.o. daily. 9. Midodrine 10 mg p.o. t.i.d. (increased from 5 mg b.i.d.) 10. Nitroglycerin 0.4 mg sublingual q.5 minutes p.r.n. 11. Mometasone 50 mcg both nares . 12. Octreotide 100 mcg subcutaneously t.i.d. for another 7 days (new). 13. Oxycodone 10 mg p.o. q.4-6 hours p.r.n. 14. Oxycodone sustained release 20 mg p.o. q.12 hours. 15. Pantoprazole 40 mg p.o. daily. 16. MiraLAX 17 g p.o. daily. 17. Rosuvastatin 5 mg p.o. daily. 18. Tamsulosin 0.4 mg p.o. daily. 19. Testosterone 40 mg topical daily. FOLLOWUP: The patient should follow up with his primary care doctor, Dr. Narayan Landa, within 7 days. He is to establish with Dr. Alvarado of Nephrology within 2 weeks. DIET: Heart healthy. He was advised that he must absolutely abstain from alcohol. DISPOSITION: Home. CONDITION: Improved. TIME SPENT ON DISCHARGE: 50 minutes. [id number]/[facility] #: [id number] MTDD
== END 2019-07-05 16:45 | disposition home or self-care (01) | DRG 432 ==
LOC: ED 13:23 → MEDTELE 17:40
PROVIDERS: ADMIT Internal Medicine; ATTEND Internal Medicine
PROC: 0W9G3ZZ Drainage of Peritoneal Cavity, Percutaneous Approach (ICD-10-PCS; principal; 2019-07-02 09:00)
DX: K70.31 Alcoholic cirrhosis of liver with ascites (principal); K76.7 Hepatorenal syndrome; N17.9 Acute kidney failure, unspecified; I85.10 Secondary esophageal varices without bleeding; E87.2 Acidosis; E87.3 Alkalosis; I25.10 Atherosclerotic heart disease of native coronary artery without angina pectoris; J44.9 Chronic obstructive pulmonary disease, unspecified; N18.9 Chronic kidney disease, unspecified; I12.9 Hypertensive chronic kidney disease with stage 1 through stage 4 chronic kidney disease, or unspecified chronic kidney disease; E87.5 Hyperkalemia; I95.9 Hypotension, unspecified; E66.9 Obesity, unspecified; I35.0 Nonrheumatic aortic (valve) stenosis; G47.34 Idiopathic sleep related nonobstructive alveolar hypoventilation; N40.1 Benign prostatic hyperplasia with lower urinary tract symptoms; R33.9 Retention of urine, unspecified; E78.00 Pure hypercholesterolemia, unspecified; I73.9 Peripheral vascular disease, unspecified; K21.9 Gastro-esophageal reflux disease without esophagitis; M19.072 Primary osteoarthritis, left ankle and foot; M19.071 Primary osteoarthritis, right ankle and foot; M19.012 Primary osteoarthritis, left shoulder; M19.011 Primary osteoarthritis, right shoulder; M47.9 Spondylosis, unspecified; F41.9 Anxiety disorder, unspecified; F32.9 Major depressive disorder, single episode, unspecified; E78.5 Hyperlipidemia, unspecified; Z99.81 Dependence on supplemental oxygen; Z95.5 Presence of coronary angioplasty implant and graft; Z85.528 Personal history of other malignant neoplasm of kidney; Z90.5 Acquired absence of kidney; Z28.21 Immunization not carried out because of patient refusal; Z68.35 Body mass index [BMI] 35.0-35.9, adult; Z88.8 Allergy status to other drugs, medicaments and biological substances; Z88.1 Allergy status to other antibiotic agents; Z91.040 Latex allergy status; Z91.048 Other nonmedicinal substance allergy status; I25.2 Old myocardial infarction; Z79.82 Long term (current) use of aspirin; Z79.899 Other long term (current) drug therapy
CPT/HCPCS: 36415; 49082; 71045; 76705; 76775; 80048; 80053; 81003; 82042; 82140; 82570; 82803; 83690; 83735; 83880; 84100; 84300; 84484; 84540; 85025; 85610; 86140; 87070; 87073; 87205; 89051; 93005; 93306; 94640; 96365; 99285; A9270-GY; C8929; G8978-GP-CJ; G8979-GP-CI; J0610; J1644; J1940; J2354; J3535; J7611; P9047

== ENCOUNTER 2020-11-14 04:51 | Inpatient (IN) ==
[2020-11-14] MEDS ORDERED: Heparin - STEMI 5,000 UNITS/ML 1 ml VIAL IV ONE (04:59)
[2020-11-14] MEDS ORDERED: NS 0.9% 1000 ml BAG 1,000 ML IV ONE (04:59)
[2020-11-14 05:23] LABS: ABS Eosinophils 0.2 10^3/ul (0-0.6); ABS Lymphocytes 2.3 10^3/ul (1.0-4.8); ABS Monocytes 0.5 10^3/ul (0-0.8); ABS Neutrophils 6.9 10^3/ul (1.5-7.7); Eosinophil % 1.6 %; Hematocrit 19 % (42-52); Hemoglobin 5.9 g/dL (14.0-18.0); Lymphocyte % 22.8 %; Mean Corpuscular HGB Conc 32 g/dL (31-36); Mean Corpuscular Hemoglobin 28 pg (27-31); Mean Corpuscular Volume 90 fL (80-94); Mean Platelet Volume 9.5 fL (7.4-10.4); Nucleated Red Blood Cells % 0.1; Platelet Count 289 10^3/uL (150-450); Red Blood Count 2.06 10^6 /uL (4.18-5.48); Red Cell Distribution Width 15 % (10-15); White Blood Count 9.9 10^3/uL (3.5-10.8)
[2020-11-14 05:27] LABS: Activated Partial Thrombo Time 30.5 seconds (26.0-38.0); INR 1.04 (0.82-1.09)
[2020-11-14] MEDS ORDERED: Pantoprazole VIAL 40 MG VIAL IV ONE (05:31)
[2020-11-14 05:40] LABS: ALT 8 U/L (7-52); AST 16 U/L (13-39); Albumin 3.5 g/dL (3.2-5.2); Albumin/Globulin Ratio 1.3 (1-3); Alkaline Phosphatase 107 U/L (34-104); Anion Gap 16 mmol/L (2-11); BUN/Creatinine Ratio 22.4 (8-20); Blood Urea Nitrogen 70 mg/dL (6-24); CO2 Carbon Dioxide 23 mmol/L (22-32); Calcium 8.6 mg/dL (8.6-10.3); Chloride 97 mmol/L (101-111); Creatine Kinase 164 U/L (10-223); EGFR African American 23.9 (>60); EGFR Non-African American 19.8 (>60); Globulin 2.7 g/dL (2-4); Glucose 432 mg/dL (70-100); LDL Cholesterol Direct 69 mg/dL; Magnesium 2.6 mg/dL (1.9-2.7); Potassium 3.5 mmol/L (3.5-5.0); Sodium 136 mmol/L (135-145); Total Protein 6.2 g/dL (6.4-8.9)
[2020-11-14 05:43] LABS: Troponin I 0.65 ng/mL (<0.03)
[2020-11-14 05:44] LABS: CKMB ng/mL 25.5 ng/mL (0.6-6.3)
[2020-11-14] MEDS ORDERED: Midazolam 5 mg/5 ml VIAL 1 mg/ml 5 ml VIAL (5 mg) ONE (06:14)
[2020-11-14] MEDS ORDERED: Iohexol 350 (CONTRAST) 200 ML MDV IV ONE ×2 (06:15)
[2020-11-14] MEDS ORDERED: Lidocaine 1% VIAL 10 MG/ML VIAL ONE (06:15)
[2020-11-14] MEDS ORDERED: nitroGLYCERIN DRIP 25,000 MCG/250 ML BTL ONE (06:15)
[2020-11-14] MEDS ORDERED: VERAPAMIL 2.5 MG/ML 2 ML VIAL ** 5 mg/2 ml ONE (06:15)
[2020-11-14] MEDS ORDERED: Heparin 1,000 UNIT/ML 10 ml (10,000 UNITS) CATHLAB/DIALYSIS ONE (06:15)
[2020-11-14] MEDS ORDERED: fentaNYL 100 mcg/2 ml 50 MCG/ML VIAL ONE ×2 (06:15→14:05)
[2020-11-14] MEDS ORDERED: Heparin 2 UNITS/ML 1000 mls 1,000 ML IV ONE (06:15)
[2020-11-14] MEDS ORDERED: Ondansetron 4 mg VIAL 2 MG/ML 2 ml VIAL ONE (06:20)
[2020-11-14] MEDS ORDERED: Ondansetron 4 mg VIAL 2 MG/ML 2 ml VIAL IV PRN (06:22)
[2020-11-14] MEDS ORDERED: Octreotide Acetate 50 MCG in NS 0.9% 50 ML 50 ML IV ONE (06:22)
[2020-11-14] MEDS ORDERED: cefTRIAXone 1 gm/50 mL NS BAG 1 GM/50 ML BAG IV ONE (06:22)
[2020-11-14] MEDS ORDERED: Nitro 2% OINT (Nitroglycerin) 1 INCH/PAK TOPICAL PRN (06:46)
[2020-11-14] MEDS ORDERED: Furosemide 40 mg/4 ml IV VIAL IV ONE (08:12)
[2020-11-14] MEDS ORDERED: Furosemide 40 mg/4 ml IV VIAL ONE (08:15)
[2020-11-14 08:22] LABS: Hematocrit 32 % (42-52); Hemoglobin 10.1 g/dL (14.0-18.0)
[2020-11-14 08:35] LABS: Anion Gap 8 mmol/L (2-11); BUN/Creatinine Ratio 22.9 (8-20); Blood Urea Nitrogen 64 mg/dL (6-24); CO2 Carbon Dioxide 25 mmol/L (22-32); Calcium 7.8 mg/dL (8.6-10.3); Chloride 105 mmol/L (101-111); EGFR African American 27.1 (>60); EGFR Non-African American 22.4 (>60); Glucose 329 mg/dL (70-100); Potassium 4.3 mmol/L (3.5-5.0); Sodium 138 mmol/L (135-145)
[2020-11-14 08:39] LABS: Troponin I 12.61 ng/mL (<0.03)
[2020-11-14] MEDS: Octreotide Acetate 500 MCG in NS 0.9% 100 ml BAG 100 ML IV SCH ×2 (08:52→19:12)
[2020-11-14 08:55] LABS: Urine Appearance Cloudy; Urine Bilirubin Negative (Negative); Urine Blood Negative (Negative); Urine Color Yellow; Urine Glucose 1+(50 mg/dL) (Negative); Urine Ketones Negative (Negative); Urine Nitrite Negative (Negative); Urine Protein 3+(>=500 mg/dL) (Negative); Urine Specific Gravity 1.013 (1.002-1.030); Urine Urobilinogen Negative (Negative)
[2020-11-14] MEDS ORDERED: Potassium Chlor 20 meq TAB.ER PO SCH (09:00)
[2020-11-14] MEDS ORDERED: Dextrose 50% Syringe 50 ml 25 GM/50 ML SYRINGE IV PUSH PRN (09:05)
[2020-11-14] MEDS: Pantoprazole 80 mg in NS BAG 80 MG/250 ML BAG IV SCH ×2 (09:07→20:13)
[2020-11-14 09:21] LABS: Urine Bacteria 1+ (Absent); Urine Red Blood Cell Trace(0-2/hpf) (Absent); Urine Squamous Epithelial Cell Present (Absent); Urine White Blood Cell Trace(0-5/hpf) (Absent)
[2020-11-14] MEDS ORDERED: Perflutren Lipid Microsphere 3 ML VIAL ONE (09:23)
[2020-11-14] MEDS ORDERED: Rocuronium 50 mg VIAL 10 mg/ml 5 ml VIAL (50 mg) ONE ×2 (10:26→10:29)
[2020-11-14] MEDS ORDERED: Etomidate 40 mg/20 ml (2 MG/ML) 20 ml VIAL (40 mg) ONE (10:29)
[2020-11-14] MEDS ORDERED: Propofol 10 mg/ml 100 ML BTL 100 ML ONE (10:58)
[2020-11-14] MEDS: Norepinephrine 16MCG/ML IVPRE 4,000 MCG/250 ML BAG IV SCH ×3 (11:10→21:18)
[2020-11-14] MEDS: Albuterol/Ipratropium NEB.SOL (2.5/0.5 MG) 3 ML NEB.SOLN INH SCH ×4 (11:34→23:25)
[2020-11-14 12:07] LABS: Hematocrit 35 % (42-52); Hemoglobin 10.9 g/dL (14.0-18.0)
[2020-11-14] MEDS ORDERED: Artificial Tear OPHTH.OINT 3.5 GM BOTH EYES PRN (12:13)
[2020-11-14] MEDS: Norepinephrine 16MCG/ML IVPRE 4,000 MCG/250 ML BAG IV ONE ×2 (13:35→23:11)
[2020-11-14] MEDS: Propofol 10 mg/ml 100 ML BTL 100 ML IV SCH ×2 (13:36→22:27)
[2020-11-14] MEDS ORDERED: Midazolam 10 mg/10 ml VIAL 1 mg/ml 10 ml VIAL (10 mg) ONE (14:05)
[2020-11-14] MEDS: Chlorhexidine MOUTHWASH 0.12% 15 ML UDC SWISH SPIT SCH ×2 (16:18→22:30)
[2020-11-14] MEDS ORDERED: Piperacillin/Tazobac ADVAN 3.375 GM in NS 0.9% 100 ml BAG 100 ML IV ONE (17:10)
[2020-11-14 17:26] LABS: Troponin I > 79.00 ng/mL (<0.03)
[2020-11-14] MEDS ORDERED: Zosyn per Pharmacy NOTE FOLLOW UP SCH (18:00)
[2020-11-14] MEDS ORDERED: Norepinephrine 16MCG/ML IVPRE 4,000 MCG/250 ML BAG IV ONE (18:58)
[2020-11-14] MEDS ORDERED: Dexmedetomidine 1,000 MCG in NS 0.9% 250 ml 240 ML IV SCH (19:00)
[2020-11-14] MEDS ORDERED: fentaNYL 100 mcg/2 ml 50 MCG/ML VIAL IV SLOW PU PRN ×2 (19:50→22:33)
[2020-11-14] MEDS ORDERED: Nitro Patch/OINT Remove PATCH TOPICAL SCH (20:00)
[2020-11-14] MEDS ORDERED: Vasopressin 100 UNITS in D5W 250 ml BAG 245 ML IV SCH (21:30)
[2020-11-14 21:31] LABS: Hematocrit 35 % (42-52); Hemoglobin 11.1 g/dL (14.0-18.0)
[2020-11-14] MEDS ORDERED: Phenylephrine IV 50 MG in NS 0.9% 250 ml 245 ML IV SCH (22:00)
[2020-11-14] MEDS ORDERED: DOBUTamine 2000 MCG/ML IVPREMX 500 MG/250 ML BAG IV SCH (22:00)
[2020-11-14] MEDS ORDERED: ZOSYN 3.375 GM Q8H per EXTENDED INFUSION IV SCH (22:30)
[2020-11-14] MEDS ORDERED: Norepinephrine *QUAD STRENGTH* 16 mg/250 mL NS per protocol IV SCH (23:00)
[2020-11-15] MEDS ORDERED: EPINEPHrine SYR 0.1MG/ML 10 ml SYRINGE ONE (00:42)
[2020-11-15] MEDS ORDERED: Sodium Bicarbonate 8.4% SYR 10 ML SYRINGE IV ONE (00:42)
[2020-11-15 01:08] VITALS: BP 93/52
== END 2020-11-15 01:00 | disposition expired ==
LOC: ED 04:51 → MERGE 04:51 → ICU 06:29
PROVIDERS: ADMIT Surgery Surgical Critical Care; ATTEND Internal Medicine